=== PATIENT | female | born 1950 | race Caucasian/White ===

== ENCOUNTER 2022-04-01 14:04 | Emergency (ER) | payer MEDICARE ==
[~2022-04-01] VITALS: Ht 167.6 cm; Wt 78.0 kg
== END 2022-04-01 15:31 | disposition home or self-care (01) ==
LOC: ER 14:04
DX: R42 Dizziness and giddiness (principal); F17.210 Nicotine dependence, cigarettes, uncomplicated
CPT/HCPCS: 82947; 93005; 93010

== ENCOUNTER 2023-12-02 19:29 | Inpatient (IN) | payer MEDICARE, OTHER ==
[~2023-12-02] VITALS: Ht 172.7 cm; Wt 72.6 kg
[2023-12-02 20:36] LABS: BASOPHILS ABSOLUTE AUTO 0.04 K/mm3 (0.00-0.23); BASOPHILS PERCENT AUTO 0 % (0-2); EOSINOPHILS ABSOLUTE AUTO 0.03 K/mm3 (0.00-0.68); EOSINOPHILS PERCENT AUTO 0 % (0-6); Hematocrit 30.6 % (33.0-51.0); IMMATURE GRAN ABSOLUTE AUTO 0.03 K/mm3 (0.00-0.10); IMMATURE GRAN PERCENT AUTO 0 % (0-1); LYMPHOCYTES ABSOLUTE AUTO 1.61 K/mm3 (0.84-5.20); LYMPHOCYTES PERCENT AUTO 15 % (21-46); MONOCYTES ABSOLUTE AUTO 1.12 K/mm3 (0.16-1.47); MONOCYTES PERCENT AUTO 10 % (4-13); Mean Corpuscular HGB 31.4 pg (26.0-34.0); Mean Corpuscular HGB Conc 32.7 g/dL (31.5-36.5); Mean Corpuscular Volume 96 fL (80-100); Mean Platelet Volume 12.6 fL (9.1-12.4); NEUTROPHILS ABSOLUTE AUTO 7.97 K/mm3 (1.96-9.15); NEUTROPHILS PERCENT AUTO 74 % (41-73); Platelet Count 164 K/mm3 (150-400); RDW Coefficient Variation 15.6 % (11.7-14.2); Red Blood Cell Count 3.18 M/mm3 (3.80-5.20)
[2023-12-02 20:42] LABS: Source, Urine Straight Cath
[2023-12-02 20:47] LABS: Appearance, Urine Hazy (Clear); Bilirubin, Urine Neg (Neg); Blood, Urine Neg (Neg); Color, Urine Yellow (P-Yellow); Glucose Qualitative, Urine Neg (Neg); Ketones, Urine Neg (Neg); Leukocyte Esterase, Urine 2+ (Neg); Nitrite, Urine Neg (Neg); Protein, Urine 1+ (Neg); Specific Gravity, Urine 1.025 (1.003-1.022); Urobilinogen, Urine 1+ (Normal)
[2023-12-02 20:51] LABS: International Normalized Ratio 1.08; Prothrombin Time Results 11.5 Sec (9.7-11.5)
[2023-12-02 20:57] LABS: Alanine Aminotransfer (ALT/SGP 115 U/L (12-78); Albumin, Blood 3.7 g/dL (3.4-5.0); Albumin/Globulin Ratio 0.9 (0.8-1.8); Alk Phos 90 U/L (50-136); Anion Gap 10 mmol/L (3-11); Aspartate Aminotrans (AST/SGOT 178 U/L (12-37); Bilirubin, Total 0.9 mg/dL (0.1-1.0); Blood Urea Nitrogen 51 mg/dL (8-24); Bun/Creatinine Ratio 37.8 (12.0-20.0); CO2, Blood 27 mmol/L (21-32); Calcium, Blood 9.4 mg/dL (8.5-10.1); Chloride, Blood 106 mmol/L (98-108); Creatinine, Blood 1.35 mg/dL (0.40-1.00); Ethanol (Alcohol), Blood, Med <3 mg/dL; Globulin, Blood 4.2 g/dL (2.2-4.0); Glomerular Filtration Rate 42 (60-); Glucose, Blood 133 mg/dL (70-99); Magnesium, Blood 2.7 mg/dL (1.6-2.4); Potassium, Blood 5.1 mmol/L (3.5-5.5); Sodium, Blood 138 mmol/L (136-145); Total Protein, Blood 7.9 g/dL (6.4-8.2)
[2023-12-02 20:58] LABS: Bacteria Mod /hpf; Mucus Light (0-Heavy); Red Blood Cells, Urine 0-2 /hpf (0-2); Squamous Epithelial Cells Few /hpf (Few)
[2023-12-02 20:59] LABS: U Amphetamine Screen Not Detected; U Barbituate Screen Not Detected; U Benzodiazapine Screen DETECTED; U Buprenorphine Screen DETECTED; U Cannabinoids Screen Not Detected; U Cocaine Screen Not Detected; U Methadone Screen Not Detected; U Methamphetamine Screen Not Detected; U Opiates Screen Not Detected; U Oxycodone Screen Not Detected; U Phencyclidine Screen Not Detected
[2023-12-02] MEDS ORDERED: CefTRIAXone Sodium 1,000 MG in NS 100 ML IV ONE (21:10)
[2023-12-02] MEDS ORDERED: NS 1,000 ML IV ONE (21:10)
[2023-12-02] MEDS ORDERED: Aspirin 325 MG Tab PO ONE (22:15)
[2023-12-02] MEDS ORDERED: Clopidogrel Bisulfate 75 MG Tab PO ONE (22:35)
[2023-12-02] MEDS ORDERED: Clopidogrel Bisulfate 75 MG Tab ONE (22:46)
[2023-12-02] MEDS ORDERED: Atorvastatin 40 MG Tab PO SCH (23:00)
[2023-12-02] MEDS ORDERED: Acetaminophen 325 MG TABLET PO PRN (23:00)
[2023-12-02] MEDS ORDERED: Ondansetron HCl 2 MG / ML 2ML Vial IV PRN (23:05)
[2023-12-03] MEDS ORDERED: NS 500 ML IV SCH (00:05)
[2023-12-03 00:43] VITALS: BP 149/45
[2023-12-03] MEDS ORDERED: Aspirin 300 MG Supp PR SCH (02:00)
[2023-12-03] MEDS ORDERED: Lactated Ringer's 1,000 ML IV SCH (02:00)
--- NOTE | 2023-12-03 04:40 | NUR ---
SHIFT SUMMARY PATIENT IS ALERT BUT NOT ORIENTED. PATIENT HAS HAD NO ACUTE EVENTS THIS SHIFT. PATIENT IS ADMITTED FOR SLURRED SPEECH AND SUSPECTED CVA. PATIENT HAS BEEN SLEEPING MOST OF SHIFT SINCE ADMIT. PATIENT FAILED BEDSIDE SPEECH EVAL IN ER. PATIENT HAS MAINTAINED NPO UNTIL OFFICIAL SPEECH EVAL. PATIENT HAS AN MRI SCHEDULED BUT CANNOT ANSWER QUESTIONS, WILL DIRECT DAY SHIFT TO ASK NEPHEW FOR MRI SCREENING FORM QUESTIONS. IV FLUIDS INFUSING ORDERED. BED IN LOCKED AND LOWEST POSITION. CALL LIGHT IN PLACE. WILL MONITOR UNTIL SHIFT CHANGE.
[2023-12-03 05:51] VITALS: BP 151/50
[2023-12-03 06:05] LABS: BASOPHILS ABSOLUTE AUTO 0.03 K/mm3 (0.00-0.23); BASOPHILS PERCENT AUTO 0 % (0-2); EOSINOPHILS ABSOLUTE AUTO 0.04 K/mm3 (0.00-0.68); EOSINOPHILS PERCENT AUTO 0 % (0-6); Hematocrit 27.1 % (33.0-51.0); IMMATURE GRAN ABSOLUTE AUTO 0.02 K/mm3 (0.00-0.10); IMMATURE GRAN PERCENT AUTO 0 % (0-1); LYMPHOCYTES ABSOLUTE AUTO 2.34 K/mm3 (0.84-5.20); LYMPHOCYTES PERCENT AUTO 25 % (21-46); MONOCYTES ABSOLUTE AUTO 1.11 K/mm3 (0.16-1.47); MONOCYTES PERCENT AUTO 12 % (4-13); Mean Corpuscular HGB Conc 33.2 g/dL (31.5-36.5); Mean Corpuscular Volume 96 fL (80-100); Mean Platelet Volume 12.7 fL (9.1-12.4); NEUTROPHILS ABSOLUTE AUTO 5.92 K/mm3 (1.96-9.15); NEUTROPHILS PERCENT AUTO 63 % (41-73); Platelet Count 129 K/mm3 (150-400); RDW Coefficient Variation 15.7 % (11.7-14.2); RDW Standard Deviation 54.4 fL (35.1-46.3); Red Blood Cell Count 2.81 M/mm3 (3.80-5.20); White Blood Cell Count 9.46 K/mm3 (4.00-11.30)
[2023-12-03 06:29] LABS: Alanine Aminotransfer (ALT/SGP 101 U/L (12-78); Albumin, Blood 3.1 g/dL (3.4-5.0); Albumin/Globulin Ratio 0.9 (0.8-1.8); Alk Phos 74 U/L (50-136); Anion Gap 6 mmol/L (3-11); Aspartate Aminotrans (AST/SGOT 162 U/L (12-37); Bilirubin, Total 0.6 mg/dL (0.1-1.0); Blood Urea Nitrogen 49 mg/dL (8-24); Bun/Creatinine Ratio 38.6 (12.0-20.0); CHOL/HDL RATIO 2.4; CO2, Blood 26 mmol/L (21-32); Calcium, Blood 8.2 mg/dL (8.5-10.1); Chloride, Blood 110 mmol/L (98-108); Cholesterol 87 mg/dL (50-200); Creatinine, Blood 1.27 mg/dL (0.40-1.00); Globulin, Blood 3.6 g/dL (2.2-4.0); Glomerular Filtration Rate 45 (60-); Glucose, Blood 105 mg/dL (70-99); HDL Cholesterol 37 mg/dL (>39); LDL/HDL RATIO 0.9; Low Density Lipoprotein Chol 32 mg/dL (0-110); Magnesium, Blood 2.3 mg/dL (1.6-2.4); Potassium, Blood 5.1 mmol/L (3.5-5.5); Sodium, Blood 137 mmol/L (136-145); Total Protein, Blood 6.7 g/dL (6.4-8.2); Triglycerides 92 mg/dL (30-160); Very Low Density Lipoprot Chol 18 mg/dL (6-32)
[2023-12-03 07:30] VITALS: BP 123/46
[2023-12-03] MEDS ORDERED: Clopidogrel Bisulfate 75 MG Tab PO SCH (09:00)
[2023-12-03] MEDS ORDERED: Atorvastatin 40 MG Tab PO SCH (09:00)
[2023-12-03] MEDS ORDERED: Aspirin 81 MG Chew PO SCH (09:00)
[2023-12-03 14:23] VITALS: BP 119/54
--- NOTE | 2023-12-03 16:33 | NUR ---
SHIFT SUMMARY: PT IS AN A&OX1-3 (SELF, PERSON, PLACE) HER BASELINE COMPREHENSION IS POOR; ALONG WITH HER LANGUAGE AND SPEECH; DYSPHAGIA. SEEN BY SPEECH, OCCUPATIONAL, AND PHYSICAL THERAPY TODAY (SEE THEIR NOTES FOR MORE DETAILS. SHE HAD AN ECHO AND MRI TODAY; RESULTS AVAILABLE. PATIENT PLEASANT AND COOPERATIVE WITH CARE; DOESN'T USE CALL LIGHT, BUT WILL MAKES NEEDS KNOWN, CAN BE IMPULSIVE (BED ALARM ON) SHE IS EATING AND DRINKING (DOES INDEPENDENTLY), SHE IS IN BED, (ALARM ON), CALL LIGHT WITHIN REACH, RESTING-RESP EVEN AND UNLABORED, NO SIGNS OR SYMPTOMS OF DISTRESS, PLAN OF CARE ONGOING.
--- NOTE | 2023-12-03 17:32 | NUR ---
TELE CALLED AT 1658 TO REPORT THAT PATIENT HAS HAD 4 EVENTS OF VENTRICULAR TRIGEM (PVCS) DR. OBRIEN NOTIFIED; NO NEW ORDERS OR ADVISEMENT. NO SIGNS OR SYMPTOMS OF DISTRESS WITH PATIENT.
[2023-12-03 18:26] LABS: Magnesium, Blood 1.9 mg/dL (1.6-2.4); Phosphorus, Blood 2.6 mg/dL (2.5-4.9); Potassium, Blood 4.8 mmol/L (3.5-5.5)
[2023-12-03 20:19] VITALS: BP 150/115
[2023-12-03] MEDS ORDERED: Lactobacil 2-S.Thermo-Bifido 1 1 Cap PO SCH (21:00)
[2023-12-03] MEDS ORDERED: CefTRIAXone Sodium 1,000 MG in NS 100 ML IV SCH (21:00)
--- NOTE | 2023-12-04 03:59 | NUR ---
SHIFT SUMMARY PATIENT IS ALERT AND ORIENTED X2. PATIENT HAS HAD NO ACUTE EVENTS THIS SHIFT. VITAL SIGNS REVIEWED. PATIENTS COMPREHENSION IS CLOSE TO BASELINE PER NOTES AND PATIENT. PATIENTS IV FLUIDS INFUSED ORDERED. PATIENT HAS BEEN IMPULSIVE MULTIPLE TIMES THIS SHIFT. BED ALARM IS ON. PATIENT HAS BEEN PLEASENT AND COOPERATIVE WITH CARE THIS SHIFT. PATIENT HAS HAD NO COMPLAINTS OF PAIN, NAUSEA, SOB OR VOMITTING THIS SHIFT. BED IN LOCKED AND LOWEST POSITION. CALL LIGHT IN PLACE. WILL MONITOR UNTIL SHIFT CHANGE.
[2023-12-04 06:12] VITALS: BP 167/59
[2023-12-04 06:52] LABS: Albumin, Blood 3.2 g/dL (3.4-5.0); Albumin/Globulin Ratio 0.8 (0.8-1.8); Calcium, Blood 8.9 mg/dL (8.5-10.1); Creatinine, Blood 0.78 mg/dL (0.40-1.00); Globulin, Blood 3.8 g/dL (2.2-4.0); Magnesium, Blood 2.1 mg/dL (1.6-2.4); Phosphorus, Blood 2.1 mg/dL (2.5-4.9); Potassium, Blood 4.4 mmol/L (3.5-5.5)
[2023-12-04 07:56] VITALS: BP 131/49
[2023-12-04] MEDS ORDERED: Potassium Phosphate Dibasic 30 MM in Dextrose 5% 500 ML IV STA (07:56)
[2023-12-04] MEDS ORDERED: LOSA50 PO (13:29)
[2023-12-04] MEDS ORDERED: PANT40 PO (13:30)
[2023-12-04] MEDS ORDERED: Feosol45 MG PO (13:31)
[2023-12-04] MEDS ORDERED: ELIQUIS5 M2 PO (13:31)
[2023-12-04] MEDS ORDERED: HYDCHL25 PO (13:32)
[2023-12-04] MEDS ORDERED: LEVSOD75 PO (13:32)
[2023-12-04] MEDS ORDERED: ATOR10 PO (13:32)
[2023-12-04] MEDS ORDERED: SERT100 PO (13:33)
[2023-12-04] MEDS ORDERED: SPIR25 PO (13:33)
[2023-12-04 15:09] VITALS: BP 128/49
--- NOTE | 2023-12-04 17:02 | NUR ---
SHIFT SUMMARY: PT IS A&OX3; NEUROLOGICAL IMPROVEMENT TODAY VERSUS YESTERDAY. MORE ORIENTED AND STABLE ON HER FEET. NO EVENTS ON TELE TODAY, RECEIVED IV POTASSIUM PHOSPHATE, GOT A R UPPER POWERGLIDE PLACED FOR LOST OF PATENTCY OF PERIPHERAL ACCESS AND ABLE TO GET NEW PERIPHERAL ACCESS. PATIENT DID USE HER CALL LIGHT ONCE TODAY TO USE THE RESTROOM, SHE HAS BEEN CONTINENT; NO BMX2 DAYS. SHE IS EATING AND DRINKING. HER FAMILY VISITED TODAY AND EXPRESS IMPROVEMENT IN PATIENT WELL VERSUS WHEN THEY FIRST BROUGHT HER INTO THE HOSPITAL. PATIENT IS IN BED, POST SHOWER; RESTING-RESP EVEN AND UNLABORED, CALL LIGHT WITHIN REACH, BED ALARM ON, AND NO SIGNS OR SYMTPOMS OF DISTRESS, PLAN OF CARE ONGOING.
[2023-12-04 19:19] VITALS: BP 142/58
[2023-12-04] MEDS ORDERED: NS 250 ML IV PRN (20:20)
[2023-12-04] MEDS ORDERED: Apixaban 5 MG Tab PO SCH (21:00)
[2023-12-04] MEDS ORDERED: Losartan Potassium 50 MG Tab PO SCH (21:00)
--- NOTE | 2023-12-05 04:24 | NUR ---
SHIFT SUMMARY PT. IS A&O X4, VERY PLEASANT, SLURRED, DELAYED SPEECH, PT. GETS FRUSTRATED WHEN UNABLE TO EXPRESS HER NEEDS WITH WORDS. PT. ABLE TO SAY "I LOVE YOU, GOOD NIGHT," AND WHEN ASKED CLOSE ENDED QUESTIONS, ABLE TO MAKE HER NEEDS KNOWN. OFFERED NOTEPAD AND A PEN FOR THE PT. TO WRITE HER NEEDS, WHICH PT. REFUSED. PT. DENIES PAIN , SOB, H/A AND DISCOMFORT, AND IS REQUESTING TO GET MORE SLEEP. MEDS ADMINISTERED WHOLE WITH WATER PO, NO ISSUES SWALLOWING DURING THIS SHIFT( BED UPRIGHT SITTING POSITION.) NO ACUTE EVENTS/DISTRESS NOTED/REPORTED DURING THIS SHIFT. BED AT THE LOWEST POSITION, CALL LIGHT IN REACH. WILL HANDOFF TO THE INCOMING SHIFT NURSE.
[2023-12-05] MEDS ORDERED: Pantoprazole Sodium 40 MG Tab PO SCH (06:00)
[2023-12-05] MEDS ORDERED: Levothyroxine Sodium 0.075 MG Tab PO SCH (06:00)
--- NOTE | 2023-12-05 06:45 | NUR ---
THIS AM PT. IS ALERT, FORMING FULL SENTENCES AND REPORTS THAT AFTER YESTERDAY EVENING'S SHOWER, SHE WAS ABLE TO FINALLY GET SOME GOOD SLEEP, THEREFORE PT. REPORTS BEING MORE GROGGY LAST NIGHT. PT. SITTING UP IN THE BED, DIDN'T NEED ANY ASSISTANCE, PT. HELD THE MEDCUP AND WAS ABLE TO GRAB THE WATERCUP AND DRINK WATER W/O ASSISTANCE WELL.
[2023-12-05 07:26] VITALS: BP 151/47
[2023-12-05] MEDS ORDERED: HydroCHLOROthiazide 25 mg Tab PO SCH (09:00)
[2023-12-05] MEDS ORDERED: Misc. Tablet PO SCH (09:00)
[2023-12-05] MEDS ORDERED: Spironolactone 25 MG Tab PO SCH (09:00)
[2023-12-05] MEDS ORDERED: Sertraline HCl 100 MG Tab PO SCH (09:00)
[2023-12-05 14:47] VITALS: BP 119/41
--- NOTE | 2023-12-05 15:12 | NUR ---
SHIFT SUMMARY: PATIENT A/OX3, SLURRED/PRESSURED AND DELAYED IN SPEECH, PLEASANT AND COOPERATIVE c CARE. PATIENT HAS HAD NO ACUTE EVENTS THIS SHIFT. PATIENT DENIES CP/PRESSURE, SOB, N/V AND DIZZINESS. PATIENT STILL ON TELE, SR HR IN THE LOW 60'S BPM. PATIENT CONTINENCE OF BLADDER, USES [facility] c 1 ASSIST FWW/GAIT BELT. PATIENT UP IN THE CHAIR FOR AN HOUR AND REQUESTED BACK IN BED. PATIENT HAS BEEN SLEEPING c INTERRUPTION UP TO BSC ON/OFF T/O SHIFT. VITAL SIGNS REVIEWED. PATIENT HAS BEEN USING CALL LIGHT APPROPRIATELY T/O SHIFT. BED ALARM ON FOR SAFETY. CALL LIGHT IN REACH.
[2023-12-05 19:32] VITALS: BP 146/52
[2023-12-05] MEDS ORDERED: Melatonin 5 MG Tablet PO PRN (21:20)
--- NOTE | 2023-12-06 04:40 | NUR ---
SHIFT SUMMARY PT. IS A&O X4, ABLE TO SPEAK SENTENCES, AND USE THE BEDSIDE COMMODE WITH STANDBY ASSIST. PT. ABLE TO PRESS THE CALL LIGHT TO REQUEST STAFF FOR ASSISTANCE. TELLY SINUS@63, PT. DENIES PAIN, H/A,AND SOB. LE ELEVATED WITH PILLOWS. AT HS, PT C/O "NOT ABLE TO SLEEP," NEW ORDER REVEIVED FROM BIBLE READER.JOSE ANTONIO:"MELATONIN 5MG PO QHS PRN," ADMINISTERED ORDERED. AT 0130 PT. AWAKE USING BEDSIDE COMMODE /STAFF ASSIST. NOTED PT.COUGHS INTERMITTENTLY, MOIST, NON-PRODUCTIVE. LS CLEAR TO AUSCULTATION. NO ACUTE EVENTS/DISTRESS NOTED/REPORTED DURING THIS SHIFT. BED AT THE LOWEST POSITION, CALL LIGHT IN REACH, BED ALARM FOR SAFETY. [id number]/REPOSITIONING DURING THIS SHIFT. WILL HANDOFF TO THE INCOMING SHIFT NURSE.
[2023-12-06 05:51] VITALS: BP 149/48
[2023-12-06 07:18] VITALS: BP 135/41
[2023-12-06 08:32] LABS: Albumin, Blood 2.5 g/dL (3.4-5.0); Albumin/Globulin Ratio 0.7 (0.8-1.8); Bilirubin, Total 0.9 mg/dL (0.1-1.0); Bun/Creatinine Ratio 23.6 (12.0-20.0); Calcium, Blood 8.2 mg/dL (8.5-10.1); Creatinine, Blood 0.76 mg/dL (0.40-1.00); Globulin, Blood 3.6 g/dL (2.2-4.0); Magnesium, Blood 1.8 mg/dL (1.6-2.4); Phosphorus, Blood 3.1 mg/dL (2.5-4.9); Potassium, Blood 4.1 mmol/L (3.5-5.5); Total Protein, Blood 6.1 g/dL (6.4-8.2)
--- NOTE | 2023-12-06 12:20 | NUR ---
DISCHARGE PT DISCHARGED BACK TO FAMILY WITH HOME HEALTH TODAY. PG REMOVED & INTACT. NE MEDICATIONS WENT OVER WITH PT FAMILY AND OTHER FOLLOW UP INSTURCTIONS. FAMILY EDUCATED ON STROKE SYMPTOMS AND WHAT TO LOOK FOR IN THE FUTURE. NO FURTHER QUESTIONS AT TIME OF DC. PT WHEELED OUT BY AIDE & DRIVEN HOME BY CARLOS.
== END 2023-12-06 12:13 | disposition home health service (06) | DRG 92 ==
LOC: ER 19:29 → MEDS 19:30
PROVIDERS: Emergency Medicine; Internal Medicine; ADMIT Student in an Organized Health Care Education/Training Program
DX: R47.81 Slurred speech (principal); N17.9 Acute kidney failure, unspecified; I65.02 Occlusion and stenosis of left vertebral artery; N18.2 Chronic kidney disease, stage 2 (mild); E03.9 Hypothyroidism, unspecified; L89.620 Pressure ulcer of left heel, unstageable; L89.610 Pressure ulcer of right heel, unstageable; K76.0 Fatty (change of) liver, not elsewhere classified; E78.00 Pure hypercholesterolemia, unspecified; E86.0 Dehydration; I12.9 Hypertensive chronic kidney disease with stage 1 through stage 4 chronic kidney disease, or unspecified chronic kidney disease; D63.1 Anemia in chronic kidney disease; E83.39 Other disorders of phosphorus metabolism; I48.0 Paroxysmal atrial fibrillation; F41.1 Generalized anxiety disorder; F32.A Depression, unspecified; K21.9 Gastro-esophageal reflux disease without esophagitis; F17.210 Nicotine dependence, cigarettes, uncomplicated
CPT/HCPCS: 36415; 51701; 70450; 70496; 70498; 70551; 80053; 80061; 81001; 82570; 82947; 83036; 83735; 84100; 84132; 84300; 84443; 85025; 85610; 87086; 92610; 93005; 93010; 93306; 96365-59; 96366-59; 97116; 97162; 97166; 97530; 97535; 99285-25; A9270; G0378; J0696; J7040; J7060; J7120; Q9967

== ENCOUNTER 2024-02-26 17:21 | Inpatient (IN) | payer MEDICARE, OTHER ==
[~2024-02-26] VITALS: Ht 177.8 cm; Wt 71.6 kg
[~2024-02-26 17:21] MED LIST: ATOR10 PO; ELIQUIS5 M2 PO; FERSU300 PO; Feosol45 MG PO; HYDCHL25 PO; LATA.005SO BOTHEYES; LEVSOD75 PO; LOSARTAN POTAS100 M1 PO; MELATONIN5 M1 PO; Melatonin 5 MG Tablet PO PRN; PANT40 PO; SERT100 PO; SPIR25 PO
[2024-02-26 21:37] LABS: BASOPHILS ABSOLUTE AUTO 0.02 K/mm3 (0.00-0.23); BASOPHILS PERCENT AUTO 0 % (0-2); EOSINOPHILS ABSOLUTE AUTO 0.11 K/mm3 (0.00-0.68); EOSINOPHILS PERCENT AUTO 2 % (0-6); Hematocrit 26.2 % (33.0-51.0); Hemoglobin 8.5 g/dL (11.5-16.0); IMMATURE GRAN ABSOLUTE AUTO 0.02 K/mm3 (0.00-0.10); IMMATURE GRAN PERCENT AUTO 0 % (0-1); LYMPHOCYTES ABSOLUTE AUTO 1.54 K/mm3 (0.84-5.20); LYMPHOCYTES PERCENT AUTO 25 % (21-46); MONOCYTES ABSOLUTE AUTO 0.63 K/mm3 (0.16-1.47); MONOCYTES PERCENT AUTO 10 % (4-13); Mean Corpuscular HGB 30.5 pg (26.0-34.0); Mean Corpuscular HGB Conc 32.4 g/dL (31.5-36.5); Mean Corpuscular Volume 94 fL (80-100); Mean Platelet Volume 12.6 fL (9.1-12.4); NEUTROPHILS ABSOLUTE AUTO 3.87 K/mm3 (1.96-9.15); NEUTROPHILS PERCENT AUTO 63 % (41-73); Platelet Count 154 K/mm3 (150-400); RDW Coefficient Variation 18.4 % (11.7-14.2); RDW Standard Deviation 63.5 fL (35.1-46.3); Red Blood Cell Count 2.79 M/mm3 (3.80-5.20); White Blood Cell Count 6.19 K/mm3 (4.00-11.30)
[2024-02-26 22:10] LABS: Albumin, Blood 3.1 g/dL (3.4-5.0); Albumin/Globulin Ratio 0.9 (0.8-1.8); Bilirubin, Total 0.6 mg/dL (0.1-1.0); Bun/Creatinine Ratio 30.6 (12.0-20.0); Calcium, Blood 8.6 mg/dL (8.5-10.1); Creatinine, Blood 1.11 mg/dL (0.40-1.00); Globulin, Blood 3.5 g/dL (2.2-4.0); Potassium, Blood 4.8 mmol/L (3.5-5.5); Total Protein, Blood 6.6 g/dL (6.4-8.2)
[2024-02-27] VITALS (10 sets, daily range): BP systolic 144–160; BP diastolic 43–53
[2024-02-27] MEDS ORDERED: Ondansetron HCl 2 MG / ML 2ML Vial IV PRN (00:05)
[2024-02-27] MEDS ORDERED: Acetaminophen 325 MG TABLET PO PRN (00:05)
[2024-02-27] MEDS ORDERED: Nitroglycerin 0.4 MG SUBL SL PRN (00:05)
[2024-02-27 03:19] LABS: BASOPHILS ABSOLUTE AUTO 0.03 K/mm3 (0.00-0.23); BASOPHILS PERCENT AUTO 1 % (0-2); EOSINOPHILS ABSOLUTE AUTO 0.13 K/mm3 (0.00-0.68); EOSINOPHILS PERCENT AUTO 3 % (0-6); Hematocrit 21.4 % (33.0-51.0); Hemoglobin 7.1 g/dL (11.5-16.0); IMMATURE GRAN ABSOLUTE AUTO 0.01 K/mm3 (0.00-0.10); IMMATURE GRAN PERCENT AUTO 0 % (0-1); LYMPHOCYTES ABSOLUTE AUTO 1.59 K/mm3 (0.84-5.20); LYMPHOCYTES PERCENT AUTO 31 % (21-46); MONOCYTES ABSOLUTE AUTO 0.61 K/mm3 (0.16-1.47); MONOCYTES PERCENT AUTO 12 % (4-13); Mean Corpuscular HGB 30.3 pg (26.0-34.0); Mean Corpuscular HGB Conc 33.2 g/dL (31.5-36.5); Mean Corpuscular Volume 92 fL (80-100); NEUTROPHILS ABSOLUTE AUTO 2.73 K/mm3 (1.96-9.15); NEUTROPHILS PERCENT AUTO 54 % (41-73); Platelet Count 123 K/mm3 (150-400); RDW Coefficient Variation 18.3 % (11.7-14.2); Red Blood Cell Count 2.34 M/mm3 (3.80-5.20)
[2024-02-27 03:54] LABS: Albumin, Blood 2.8 g/dL (3.4-5.0); Albumin/Globulin Ratio 0.9 (0.8-1.8); Bilirubin, Total 0.5 mg/dL (0.1-1.0); Calcium, Blood 8.4 mg/dL (8.5-10.1); Globulin, Blood 3.2 g/dL (2.2-4.0); Potassium, Blood 4.3 mmol/L (3.5-5.5)
[2024-02-27] MEDS ORDERED: Pantoprazole Sodium 40 MG Tab PO SCH (06:00)
--- NOTE | 2024-02-27 07:55 | NUR ---
SHIFT SUMMARY: VALENTINE IS A&OX4. VSS, NO ACUTE EVENTS SINCE ADMISSION TO THE FLOOR THIS SHIFT. SHE IS A ONE-PERSON STANDBY ASSIST AND IS TOLERATING CLEAR LIQUIDS WELL. SHE DOES HAVE EXPRESSIVE APHASIA AND HAS DIFFICULTIES ANSWERING QUESTIONS CLEARLY AT TIMES. SHE STATES SHE LIVES WITH HER NIECE WHO ASSISTS HER TO MAKE/UNDERSTAND/COMMUNICATE HER HEALTHCARE DECISIONS. IV TO LEFT UPPER ARM PATENT. PT DENIED ANY BLOODY STOOL FOR THE LAST TWO DAYS, BUT UNSURE WHEN SHE HAD THE LAST BOUT OF BLOODY STOOL. PT STATES THAT SHE HAS BEEN HAVING DARK STOOLS. REQUESTED PT TO ALLOW STAFF TO VIEW HER NEXT BOWEL MOVEMENT. SHE IS LYING IN BED WITH THE CALL LIGHT IN REACH. REPORT WAS GIVEN TO DAY SHIFT RN.
[2024-02-27] MEDS ORDERED: Spironolactone 25 MG Tab PO SCH (09:00)
[2024-02-27] MEDS ORDERED: Apixaban 5 MG Tab PO SCH ×2 (09:00→21:00)
[2024-02-27] MEDS ORDERED: Losartan Potassium 50 MG Tab PO SCH (09:00)
[2024-02-27] MEDS ORDERED: Sertraline HCl 100 MG Tab PO SCH (09:00)
[2024-02-27] MEDS ORDERED: Aspirin 81 MG Chew PO SCH (09:00)
[2024-02-27] MEDS ORDERED: Atorvastatin 10 MG Tab PO SCH (09:00)
[2024-02-27 10:33] LABS: Hematocrit 20.2 % (33.0-51.0); Hemoglobin 6.7 g/dL (11.5-16.0)
--- NOTE | 2024-02-27 11:30 | NUR ---
CONTACTED DR BUCIO REGARDING H&H RESULTED AT 1020. STATED SHE WOULD PLACE ORDERS TO TRANSFUSE. CONSENT SIGNED IN CHART AND TYPE AND SCREEN RESULTED.
--- NOTE | 2024-02-27 12:00 | NUR ---
assumed care of pt, will start a blood transfusion, pt has word salad but is a/ox4, pleasant and cooperative with care, very difficult to understand. call light in reach.
[2024-02-27] MEDS ORDERED: NS 500 ML IV SCH (13:10)
--- NOTE | 2024-02-27 18:35 | NUR ---
pt visiting with family, answered questions from her niece, no acute changes this shift, she recieved one unit of prbc's, tolerated well. call light in reach.
[2024-02-27] MEDS ORDERED: DiphenhydrAMINE HCL 25 MG Cap PO PRN (21:25)
[2024-02-27 22:34] LABS: BASOPHILS ABSOLUTE AUTO 0.02 K/mm3 (0.00-0.23); BASOPHILS PERCENT AUTO 0 % (0-2); EOSINOPHILS ABSOLUTE AUTO 0.09 K/mm3 (0.00-0.68); EOSINOPHILS PERCENT AUTO 2 % (0-6); Hematocrit 23.3 % (33.0-51.0); Hemoglobin 7.8 g/dL (11.5-16.0); IMMATURE GRAN ABSOLUTE AUTO 0.01 K/mm3 (0.00-0.10); IMMATURE GRAN PERCENT AUTO 0 % (0-1); LYMPHOCYTES ABSOLUTE AUTO 1.49 K/mm3 (0.84-5.20); LYMPHOCYTES PERCENT AUTO 25 % (21-46); MONOCYTES ABSOLUTE AUTO 0.69 K/mm3 (0.16-1.47); MONOCYTES PERCENT AUTO 12 % (4-13); Mean Corpuscular HGB Conc 33.5 g/dL (31.5-36.5); Mean Corpuscular Volume 90 fL (80-100); Mean Platelet Volume 12.1 fL (9.1-12.4); NEUTROPHILS ABSOLUTE AUTO 3.67 K/mm3 (1.96-9.15); NEUTROPHILS PERCENT AUTO 61 % (41-73); Platelet Count 136 K/mm3 (150-400); RDW Coefficient Variation 18.3 % (11.7-14.2); RDW Standard Deviation 58.6 fL (35.1-46.3); White Blood Cell Count 5.97 K/mm3 (4.00-11.30)
[2024-02-28 05:16] VITALS: BP 168/51
[2024-02-28 05:18] LABS: BASOPHILS ABSOLUTE AUTO 0.03 K/mm3 (0.00-0.23); BASOPHILS PERCENT AUTO 1 % (0-2); EOSINOPHILS ABSOLUTE AUTO 0.16 K/mm3 (0.00-0.68); EOSINOPHILS PERCENT AUTO 3 % (0-6); Hematocrit 24.9 % (33.0-51.0); Hemoglobin 8.2 g/dL (11.5-16.0); IMMATURE GRAN ABSOLUTE AUTO 0.02 K/mm3 (0.00-0.10); IMMATURE GRAN PERCENT AUTO 0 % (0-1); LYMPHOCYTES ABSOLUTE AUTO 1.57 K/mm3 (0.84-5.20); LYMPHOCYTES PERCENT AUTO 29 % (21-46); MONOCYTES PERCENT AUTO 13 % (4-13); Mean Corpuscular HGB 29.8 pg (26.0-34.0); Mean Corpuscular HGB Conc 32.9 g/dL (31.5-36.5); Mean Corpuscular Volume 91 fL (80-100); Mean Platelet Volume 11.7 fL (9.1-12.4); NEUTROPHILS ABSOLUTE AUTO 3.01 K/mm3 (1.96-9.15); NEUTROPHILS PERCENT AUTO 55 % (41-73); Platelet Count 136 K/mm3 (150-400); RDW Coefficient Variation 18.4 % (11.7-14.2); RDW Standard Deviation 60.3 fL (35.1-46.3); Red Blood Cell Count 2.75 M/mm3 (3.80-5.20); White Blood Cell Count 5.49 K/mm3 (4.00-11.30)
--- NOTE | 2024-02-28 05:45 | NUR ---
SHIFT SUMMARY: VALENTINE IS A&O, DIFFICULT TO ASSESS D/T EXPRESSIVE APHASIA. VSS, BP MILDLY ABOVE TREND. PT'S HEMOGLOBIN IS TRENDING UP. POWERGLIDE TO RIGHT UPPER ARM PATENT. SHE IS INDEPENDENT IN THE ROOM, TOLERATING PO INTAKE WELL, AND ABLE TO MAKE HER NEEDS KNOWN. PT DENIES ANY SIGNS OF BLEEDING INCLUDING BLOODY STOOL. SHE IS LYING IN BED WITH THE CALL LIGHT IN REACH. WILL GIVE REPORT TO DAY SHIFT RN.
[2024-02-28 06:00] LABS: Albumin, Blood 2.7 g/dL (3.4-5.0); Albumin/Globulin Ratio 0.8 (0.8-1.8); Bilirubin, Total 2.2 mg/dL (0.1-1.0); Calcium, Blood 8.7 mg/dL (8.5-10.1); Creatinine, Blood 0.95 mg/dL (0.40-1.00); Globulin, Blood 3.2 g/dL (2.2-4.0); Potassium, Blood 4.1 mmol/L (3.5-5.5); Total Protein, Blood 5.9 g/dL (6.4-8.2)
[2024-02-28] MEDS ORDERED: Levothyroxine Sodium 0.075 MG Tab PO SCH (06:00)
[2024-02-28 07:22] VITALS: BP 164/65
[2024-02-28] MEDS ORDERED: HydroCHLOROthiazide 25 mg Tab PO SCH (09:00)
[2024-02-28] MEDS ORDERED: Ferrous Sulfate 325 MG Tab PO SCH (09:00)
[2024-02-28 14:53] LABS: Percent Saturation 90.1 % (15.0-50.0)
[2024-02-28 16:01] VITALS: BP 144/46
--- NOTE | 2024-02-28 17:41 | NUR ---
PT A&O X4, ABLE TO MAKE DESIRES KNOWN. SOMETIMES RN UTILIZES YES/NO QUESTIONS TO UNDERSTAND DESIRES. INDEPENDANT IN ROOM, AMBULATES TO BATHROOM WELL, HAD BM TODAY WITH NO BLACK, TARRY APPEARANCE. HAND FIRST PART OF STRESS TEST TODAY, NOW ON NUCLEAR MEDICATION UNTIL 03/01. SECOND PART OF STRESS TEST SHOULD BE PERFORMED TOMORROW. CALL LIGHT WITHIN REACH.
[2024-02-28 20:36] VITALS: BP 168/52
[2024-02-28] MEDS ORDERED: Latanoprost 0.005% Opth Soln 2.5 ML BOTHEYES SCH (21:00)
[2024-02-29 02:39] VITALS: BP 175/51
[2024-02-29] MEDS ORDERED: HydrALAZINE HCl 20 MG / ML 1ML Vial IV ONE (04:45)
[2024-02-29 04:49] VITALS: BP 175/69
[2024-02-29 06:13] LABS: Albumin, Blood 2.6 g/dL (3.4-5.0); Albumin/Globulin Ratio 0.9 (0.8-1.8); Bilirubin, Total 0.7 mg/dL (0.1-1.0); Bun/Creatinine Ratio 18.7 (12.0-20.0); Calcium, Blood 8.3 mg/dL (8.5-10.1); Creatinine, Blood 0.86 mg/dL (0.40-1.00); Potassium, Blood 4.2 mmol/L (3.5-5.5); Total Protein, Blood 5.6 g/dL (6.4-8.2)
--- NOTE | 2024-02-29 06:54 | NUR ---
SHIFT SUMMARY: VALENTINE IS A&OX4, EXPRESSIVE APHASIA IS PRONOUNCED, BUT PT IS ABLE TO ANSWER YES/NO QUESTIONS EFFECTIVELY. VSS, SHE WAS MADE NPO AT 0330 IN ANTICIPATION OF STRESS TEST, NO CAFFEINE GIVEN THIS SHIFT. SHE IS INDEPENENT IN THE ROOM, POWERGLIDE TO GABRIEL PATENT, AND SHE IS CONTINENT OF BLADDER AND BOWEL. SHE WAS TOLERATING PO INTAKE WELL PRIOR TO BEING MADE NPO. 0600 MEDICATIONS WERE GIVEN. SHE IS LYING IN BED WITH THE CALL LIGHT IN REACH, BED IN LOWEST POSITION. WILL GIVE REPORT TO DAY SHIFT RN.
[2024-02-29 08:34] VITALS: BP 142/56
[2024-02-29] MEDS ORDERED: Caffeine Citrated 60 MG/3 ML Vial ONE (10:37)
[2024-02-29] MEDS ORDERED: Regadenoson 0.4 MG/5 ML SYRINGE ONE (10:37)
[2024-02-29 14:36] VITALS: BP 142/56
--- NOTE | 2024-02-29 17:23 | NUR ---
SHIFT SUMMARY PT A&OX4, ABLE TO LET NEEDS BE KNOWN (UTILIZE YES/NO QUESTIONS). CONTINENT, AMBULATED TO THE BATHROOM FOR ENTIRE SHIFT. HAD STRESS TODAY, WAS NOTIFIED OF RESULTS. NPO AFTER MIDNIGHT. CALL LIGHT IN REACH.
[2024-02-29] MEDS ORDERED: Nitroglycerin 0.4 MG SUBL SL PRN (18:15)
[2024-02-29 20:02] VITALS: BP 145/66
[2024-03-01 03:38] VITALS: BP 165/58
--- NOTE | 2024-03-01 04:02 | NUR ---
sffect pleasant. pt cooperative. rested quietly. no distress noted. oog ambulating in room at this time. [id number] C/O NO DISTRERSS NOTED.
[2024-03-01 06:01] LABS: BASOPHILS ABSOLUTE AUTO 0.02 K/mm3 (0.00-0.23); BASOPHILS PERCENT AUTO 0 % (0-2); EOSINOPHILS ABSOLUTE AUTO 0.22 K/mm3 (0.00-0.68); EOSINOPHILS PERCENT AUTO 4 % (0-6); Hematocrit 23.7 % (33.0-51.0); Hemoglobin 7.8 g/dL (11.5-16.0); IMMATURE GRAN ABSOLUTE AUTO 0.02 K/mm3 (0.00-0.10); IMMATURE GRAN PERCENT AUTO 0 % (0-1); LYMPHOCYTES ABSOLUTE AUTO 1.19 K/mm3 (0.84-5.20); LYMPHOCYTES PERCENT AUTO 21 % (21-46); MONOCYTES ABSOLUTE AUTO 0.86 K/mm3 (0.16-1.47); MONOCYTES PERCENT AUTO 15 % (4-13); Mean Corpuscular HGB 29.7 pg (26.0-34.0); Mean Corpuscular HGB Conc 32.9 g/dL (31.5-36.5); Mean Corpuscular Volume 90 fL (80-100); Mean Platelet Volume 11.5 fL (9.1-12.4); NEUTROPHILS ABSOLUTE AUTO 3.34 K/mm3 (1.96-9.15); NEUTROPHILS PERCENT AUTO 59 % (41-73); Platelet Count 128 K/mm3 (150-400); RDW Coefficient Variation 17.6 % (11.7-14.2); RDW Standard Deviation 57.8 fL (35.1-46.3); Red Blood Cell Count 2.63 M/mm3 (3.80-5.20); White Blood Cell Count 5.65 K/mm3 (4.00-11.30)
[2024-03-01 08:30] VITALS: BP 135/59
[2024-03-01] MEDS ORDERED: AmLODIPine Besylate 5 MG Tab PO SCH (09:00)
[2024-03-01] MEDS ORDERED: AMLO10 PO (12:25)
[2024-03-01] MEDS ORDERED: NITR.4SL SL (12:26)
--- NOTE | 2024-03-01 14:31 | NUR ---
1430 PATIENT DISCAHRGED HOME, DISCHARGE INSTRUCTIONS, FOLLOW UP NEEDS, AND MEDICATIONS GIVEN TO PATIENT, SON, AND GRANDSON. ALL DENEID FURTHER QUESTIONS, PLEASANT TO CARE
== END 2024-03-01 14:08 | disposition home or self-care (01) | DRG 311 ==
LOC: ER 17:21 → MEDS 17:30
PROVIDERS: Hospitalist; Internal Medicine; Student in an Organized Health Care Education/Training Program; ADMIT Student in an Organized Health Care Education/Training Program
PROC: 30233N1 Transfusion of Nonautologous Red Blood Cells into Peripheral Vein, Percutaneous Approach (ICD-10-PCS; principal; 2024-02-27)
DX: I20.9 Angina pectoris, unspecified (principal); I13.0 Hypertensive heart and chronic kidney disease with heart failure and stage 1 through stage 4 chronic kidney disease, or unspecified chronic kidney disease; I50.32 Chronic diastolic (congestive) heart failure; K74.60 Unspecified cirrhosis of liver; G89.29 Other chronic pain; I69.320 Aphasia following cerebral infarction; E03.9 Hypothyroidism, unspecified; E78.5 Hyperlipidemia, unspecified; I48.0 Paroxysmal atrial fibrillation; H40.9 Unspecified glaucoma; F17.210 Nicotine dependence, cigarettes, uncomplicated; D50.9 Iron deficiency anemia, unspecified; N18.31 Chronic kidney disease, stage 3a; Z91.040 Latex allergy status; Z88.8 Allergy status to other drugs, medicaments and biological substances; Z79.899 Other long term (current) drug therapy; Z79.01 Long term (current) use of anticoagulants; Z79.890 Hormone replacement therapy
CPT/HCPCS: 36415; 36430; 71045; 76705; 78452; 80053; 82728; 83540; 83550; 83690; 83735; 83880; 84484; 85014; 85018; 85025; 86850; 86900; 86901; 86923; 93005; 93010; 93017; 93971; 99285-25; A9270; A9500; C1751; G0378; J0360; J0706; J2785; J7040; P9016

== ENCOUNTER 2024-04-03 11:49 | Inpatient (IN) | payer MEDICARE, OTHER ==
[~2024-04-03] VITALS: Ht 154.9 cm; Wt 71.6 kg
[~2024-04-03 11:49] MED LIST changes: +AMLO10 PO; -HYDCHL25 PO; +HYDROCHLOROTH12.5 MG PO; +MELATONIN10 M1 PO; -MELATONIN5 M1 PO; -Melatonin 5 MG Tablet PO PRN; +NITR.4SL SL
[2024-04-03 14:49] LABS: BASOPHILS ABSOLUTE AUTO 0.02 K/mm3 (0.00-0.23); BASOPHILS PERCENT AUTO 0 % (0-2); EOSINOPHILS ABSOLUTE AUTO 0.05 K/mm3 (0.00-0.68); EOSINOPHILS PERCENT AUTO 1 % (0-6); Hematocrit 18.6 % (33.0-51.0); IMMATURE GRAN ABSOLUTE AUTO 0.03 K/mm3 (0.00-0.10); IMMATURE GRAN PERCENT AUTO 1 % (0-1); LYMPHOCYTES ABSOLUTE AUTO 1.24 K/mm3 (0.84-5.20); LYMPHOCYTES PERCENT AUTO 24 % (21-46); MONOCYTES ABSOLUTE AUTO 0.68 K/mm3 (0.16-1.47); MONOCYTES PERCENT AUTO 13 % (4-13); Mean Corpuscular HGB 32.1 pg (26.0-34.0); Mean Corpuscular HGB Conc 32.3 g/dL (31.5-36.5); Mean Corpuscular Volume 100 fL (80-100); Mean Platelet Volume 11.5 fL (9.1-12.4); NEUTROPHILS ABSOLUTE AUTO 3.24 K/mm3 (1.96-9.15); NEUTROPHILS PERCENT AUTO 62 % (41-73); Platelet Count 155 K/mm3 (150-400); RDW Coefficient Variation 19.9 % (11.7-14.2); RDW Standard Deviation 70.7 fL (35.1-46.3); Red Blood Cell Count 1.87 M/mm3 (3.80-5.20); White Blood Cell Count 5.26 K/mm3 (4.00-11.30)
[2024-04-03 15:07] LABS: Albumin, Blood 2.6 g/dL (3.4-5.0); Albumin/Globulin Ratio 0.9 (0.8-1.8); Bilirubin, Total 0.6 mg/dL (0.1-1.0); Bun/Creatinine Ratio 35.8 (12.0-20.0); Creatinine, Blood 1.37 mg/dL (0.40-1.00); Potassium, Blood 4.2 mmol/L (3.5-5.5); Total Protein, Blood 5.6 g/dL (6.4-8.2)
[2024-04-03] MEDS ORDERED: NS 1,000 ML IV SCH (15:15)
[2024-04-03] MEDS ORDERED: NS 1,000 ML IV ONE (16:26)
[2024-04-03] MEDS ORDERED: FLU VACC TS2024-25(6MOS UP)/PF 45 MCG/0.5 ML SYRINGE IM SCH (16:50)
[2024-04-03] MEDS ORDERED: Pantoprazole Sodium 40 MG Injection IV SCH (17:00)
[2024-04-03 17:01] LABS: Source, Urine Clean Catch
[2024-04-03 17:03] LABS: Appearance, Urine Clear (Clear); Bilirubin, Urine Neg (Neg); Blood, Urine 1+ (Neg); Color, Urine Yellow (P-Yellow); Glucose Qualitative, Urine Neg (Neg); Ketones, Urine Neg (Neg); Leukocyte Esterase, Urine 1+ (Neg); Nitrite, Urine Neg (Neg); Protein, Urine Neg (Neg); Urobilinogen, Urine NORM (Normal)
[2024-04-03 17:10] LABS: Bacteria Few /hpf; Red Blood Cells, Urine 0-2 /hpf (0-2); Squamous Epithelial Cells Few /hpf (Few); Transitional Epithelial Cells Rare /hpf (0-Rare)
[2024-04-03] MEDS ORDERED: ATOR80 PO (17:22)
[2024-04-03] MEDS ORDERED: LOSARTAN POTAS100 M1 PO (17:24)
[2024-04-03 18:47] VITALS: BP 116/51
--- NOTE | 2024-04-03 19:16 | NUR ---
PT TO ROOM 183 LUNGS CLEAR WITH EXP WHEEZES T/O. H/R REG, CELIA, NO MURMUR NOTED. TELE ON ORDER . PT REPORTS 2 DAYS BLACK STOOL. HAT PLACED IN TOILET TO OBSERVE. BLOOD JUST FINISHED AT 185. MARKED ON ER BLOOD SHEET. DR KHALIL IN TO SEE PT. SPOKE TO ME AT 1920 STATES OKAY FULL LIQUID TONITE UNTIL 0300 TUES AM. AT 0300 TUES AM, WATER ONLY. NPO NOON WEDNESDAY. DR SMITH WILL MAKE ORDERS
--- NOTE | 2024-04-03 19:51 | NUR ---
PT TO ROOM 1835, BLOOD NEARLY DONE RUNNING. STOPPED AT 1850. PAPER CHARTED DONE. PENDING ONE MORE UNIT. CALLED DR KHALIL TO MAKE SURE GOT CONSULT. HE DID NOT ANS. CALLED DR DIALLO, HE STATES SPOKE TO DR KHALIL AND SAYS WILL COME SEE TONTC. DR KHALIL DID INDEED COME IN. FULL LIQUID THRU 3AM. H2O ONLY AT 3AM UNTIL NOON. NPO AT NOON WEDNESDAY. HE TO PLACE ORDERS. TELE PLACED, CELIA AT 50'S. PT HAS ZIOPATCH IN PLACE. BED IN LOW POSITION, CALL LITE IN [facility], CALLS APPROP
[2024-04-03] MEDS ORDERED: NS 250 ML IV PRN (20:15)
[2024-04-03 21:42] VITALS: BP 115/43
[2024-04-03 22:13] VITALS: BP 119/42
[2024-04-03 23:10] VITALS: BP 121/40
[2024-04-04] VITALS (19 sets, daily range): BP systolic 102–158; BP diastolic 37–73
[2024-04-04 04:24] LABS: BASOPHILS ABSOLUTE AUTO 0.02 K/mm3 (0.00-0.23); BASOPHILS PERCENT AUTO 0 % (0-2); EOSINOPHILS ABSOLUTE AUTO 0.15 K/mm3 (0.00-0.68); EOSINOPHILS PERCENT AUTO 3 % (0-6); Hematocrit 24.1 % (33.0-51.0); Hemoglobin 8.2 g/dL (11.5-16.0); IMMATURE GRAN ABSOLUTE AUTO 0.01 K/mm3 (0.00-0.10); IMMATURE GRAN PERCENT AUTO 0 % (0-1); LYMPHOCYTES ABSOLUTE AUTO 1.88 K/mm3 (0.84-5.20); LYMPHOCYTES PERCENT AUTO 33 % (21-46); MONOCYTES ABSOLUTE AUTO 0.75 K/mm3 (0.16-1.47); MONOCYTES PERCENT AUTO 13 % (4-13); Mean Corpuscular HGB 31.9 pg (26.0-34.0); NEUTROPHILS ABSOLUTE AUTO 2.91 K/mm3 (1.96-9.15); NEUTROPHILS PERCENT AUTO 51 % (41-73); Platelet Count 144 K/mm3 (150-400); RDW Coefficient Variation 18.7 % (11.7-14.2); RDW Standard Deviation 60.4 fL (35.1-46.3); Red Blood Cell Count 2.57 M/mm3 (3.80-5.20); White Blood Cell Count 5.72 K/mm3 (4.00-11.30)
[2024-04-04 04:29] LABS: Mean Corpuscular Volume 94 fL (80-100)
[2024-04-04 04:44] LABS: Bun/Creatinine Ratio 34.3 (12.0-20.0); Creatinine, Blood 1.08 mg/dL (0.40-1.00); Potassium, Blood 4.1 mmol/L (3.5-5.5)
--- NOTE | 2024-04-04 04:52 | NUR ---
PT REC'D FROM ED AT SHIFT CHANGE. ADMITTED WITH GI BLEED, PT HAS HX OF GI BLEEDS. AAOX4. HX OF CVA, ESPRESSIVE APHASISA, PT CAN FIND WORDS WITH TIME. RESIDUAL R SIDE WEAKNESS. SBA WITH AMBULATION D/T BLEEDING RISK. PT HAS A STEADY GAIT. TELE IN PLACE, BRADYCARDIA AND SYEDA PATCH. RA. CONT OF URINE AND BOWELS. 2 UNITS PBS REC'D ON 04/03/22 WITHOUT COMPLICATIONS. PT IS PLEASANT AND RINGS APPRIATLEY. UPPER ENDO 04/04, WATER UNTIL NOON AND THEN NPO.
[2024-04-04] MEDS ORDERED: Levothyroxine Sodium 0.075 MG Tab PO SCH (06:00)
[2024-04-04] MEDS ORDERED: Sertraline HCl 100 MG Tab PO SCH (09:00)
[2024-04-04 10:30] LABS: Hematocrit 25.9 % (33.0-51.0); Hemoglobin 8.7 g/dL (11.5-16.0)
--- NOTE | 2024-04-04 11:53 | NUR ---
MED DR DIALLO IN [facility]. UPDATED THAT PT NEEDS MEDS. ARE RECONCILED
[2024-04-04] MEDS ORDERED: NS 500 ML IV SCH (12:05)
[2024-04-04] MEDS ORDERED: propofoL 40 ML IV ONE (13:46)
[2024-04-04] MEDS ORDERED: Ipratropium/Albuterol SulF 2.5-0.5MG/3 ML Amp INH SCH (13:55)
--- NOTE | 2024-04-04 14:03 | NUR ---
History, Chart, Medications and Allergies reviewed before start of procedure. Patient confirms NPO status and agrees with scheduled surgery. Patient communicating slow, but able to communicate with nurse with some aphasia noted. Dr. Day notified of lung assessment. Duoneb ordered and started. REPORT GIVEN TO BOED MACIAS RN.
--- NOTE | 2024-04-04 14:48 | NUR ---
04/04/24 1448 Jairon Tenorio CONFIRMED AND REVIEWED H&P, MEDCICATIONS, ALLERGIES, MEDICAL HISTORY, RESPIRATORY HISTORY, VITAL SIGNS, 3-LEAD EKG, CONSENTS, AND PHYSICIAN ORDERS. PATIENT CONFIRMS NPO STATUS AND AGREES WITH SCHEDULED PROCEDURE. MONITOR INTACT WITH CONTINUOUS PULSE OXIMETRY, CAPNOGRAPHY, 3-LEAD EKG, INTERMITTENT BP. SUPPLEMENTAL O2 TO BE TITRATED THROUGHOUT PROCEDURE TO MAINTAIN O2 SATURATION ABOVE 90%. PATIENT DETERMINED TO BE ASA APPROPRIATE FOR PROPOFOL SEDATION PRIOR TO START OF PROCEDURE BY DR. KHALIL.
[2024-04-04 16:27] LABS: Hematocrit 25.8 % (33.0-51.0); Hemoglobin 8.7 g/dL (11.5-16.0)
--- NOTE | 2024-04-04 17:30 | NUR ---
PT PLEASTNT COOP A/O. DYSPHAGIA CONTINUES. DR KHALIL DID SCOPE AND FIXED DUODENAL AREA, CLIPS AND COTTERIZING. DINNER ORDERED BY DR KHALIL. PT AWAKE, AMBULATED TO BATHROOM SBA. VSS. MENTIONED TO DRAMATIC ARTS HISTORIAN THAT SHE MIGHT BE REALEASED TO GO HOME . NO OTHER CONCERNS NOTED. BED IN LOW POSITIOIN, CALL LITE IN REACH, CALLS APPROP
[2024-04-04 22:12] LABS: Hematocrit 24.5 % (33.0-51.0); Hemoglobin 8.2 g/dL (11.5-16.0)
[2024-04-05 02:40] VITALS: BP 158/55
--- NOTE | 2024-04-05 04:32 | NUR ---
SHIFT SUMMARY PATIENT HAD NO ACUTE CHANGES. AXOX 4 AND SBA TO BR. POWERGLIDE DANAE ARM INTACT. TELE MONITOR NSR 64 W/BBB. DENIES CHEST PAIN, SOB, AND N/V. VSS/AFEBRILE. LAB DRAW HgB 8.2 AND LAST HgB 8.7. TROPONIN 112 DOWN FROM 147. COOPERATIVE WITH CARE. CALL LIGHT IN REACH. BED IN LOWEST POSITION. WILL CONTINUE TO MONITOR UNTIL DAY SHIFT NURSE ASSUMES CARE.
[2024-04-05 05:33] LABS: BASOPHILS ABSOLUTE AUTO 0.04 K/mm3 (0.00-0.23); BASOPHILS PERCENT AUTO 1 % (0-2); EOSINOPHILS ABSOLUTE AUTO 0.14 K/mm3 (0.00-0.68); EOSINOPHILS PERCENT AUTO 2 % (0-6); Hematocrit 27.1 % (33.0-51.0); Hemoglobin 8.9 g/dL (11.5-16.0); IMMATURE GRAN ABSOLUTE AUTO 0.02 K/mm3 (0.00-0.10); IMMATURE GRAN PERCENT AUTO 0 % (0-1); LYMPHOCYTES ABSOLUTE AUTO 1.43 K/mm3 (0.84-5.20); LYMPHOCYTES PERCENT AUTO 16 % (21-46); MONOCYTES ABSOLUTE AUTO 0.99 K/mm3 (0.16-1.47); MONOCYTES PERCENT AUTO 11 % (4-13); Mean Corpuscular HGB 31.3 pg (26.0-34.0); Mean Corpuscular HGB Conc 32.8 g/dL (31.5-36.5); Mean Corpuscular Volume 95 fL (80-100); Mean Platelet Volume 10.5 fL (9.1-12.4); NEUTROPHILS ABSOLUTE AUTO 6.23 K/mm3 (1.96-9.15); NEUTROPHILS PERCENT AUTO 70 % (41-73); Platelet Count 173 K/mm3 (150-400); RDW Coefficient Variation 19.7 % (11.7-14.2); RDW Standard Deviation 68.3 fL (35.1-46.3); Red Blood Cell Count 2.84 M/mm3 (3.80-5.20); White Blood Cell Count 8.85 K/mm3 (4.00-11.30)
[2024-04-05 05:49] LABS: Calcium, Blood 8.4 mg/dL (8.5-10.1); Creatinine, Blood 0.96 mg/dL (0.40-1.00); Potassium, Blood 4.3 mmol/L (3.5-5.5)
[2024-04-05] MEDS ORDERED: Pantoprazole Sodium 40 MG Tab PO SCH (06:00)
[2024-04-05 07:51] VITALS: BP 156/55
[2024-04-05 09:30] VITALS: BP 155/53
[2024-04-05] MEDS ORDERED: Acetaminophen 500 MG Tab PO PRN (09:40)
[2024-04-05 11:47] VITALS: BP 152/49
[2024-04-05] MEDS ORDERED: NS 1,000 ML IV SCH (12:00)
[2024-04-05] MEDS ORDERED: Ondansetron HCl 2 MG / ML 2ML Vial IV PRN (12:00)
[2024-04-05 12:13] LABS: BASOPHILS ABSOLUTE AUTO 0.02 K/mm3 (0.00-0.23); BASOPHILS PERCENT AUTO 0 % (0-2); EOSINOPHILS PERCENT AUTO 0 % (0-6); Hematocrit 24.7 % (33.0-51.0); Hemoglobin 8.5 g/dL (11.5-16.0); IMMATURE GRAN ABSOLUTE AUTO 0.06 K/mm3 (0.00-0.10); IMMATURE GRAN PERCENT AUTO 0 % (0-1); LYMPHOCYTES ABSOLUTE AUTO 0.57 K/mm3 (0.84-5.20); LYMPHOCYTES PERCENT AUTO 4 % (21-46); MONOCYTES ABSOLUTE AUTO 1.27 K/mm3 (0.16-1.47); MONOCYTES PERCENT AUTO 9 % (4-13); Mean Corpuscular HGB 32.2 pg (26.0-34.0); Mean Corpuscular HGB Conc 34.4 g/dL (31.5-36.5); Mean Corpuscular Volume 94 fL (80-100); Mean Platelet Volume 10.5 fL (9.1-12.4); NEUTROPHILS ABSOLUTE AUTO 12.99 K/mm3 (1.96-9.15); NEUTROPHILS PERCENT AUTO 87 % (41-73); Platelet Count 159 K/mm3 (150-400); RDW Coefficient Variation 18.9 % (11.7-14.2); RDW Standard Deviation 64.4 fL (35.1-46.3); Red Blood Cell Count 2.64 M/mm3 (3.80-5.20); White Blood Cell Count 14.91 K/mm3 (4.00-11.30)
[2024-04-05 12:33] LABS: Albumin, Blood 2.5 g/dL (3.4-5.0); Albumin/Globulin Ratio 0.8 (0.8-1.8); Bun/Creatinine Ratio 22.4 (12.0-20.0); Calcium, Blood 7.8 mg/dL (8.5-10.1); Creatinine, Blood 0.98 mg/dL (0.40-1.00); Globulin, Blood 3.1 g/dL (2.2-4.0); Potassium, Blood 4.1 mmol/L (3.5-5.5); Total Protein, Blood 5.6 g/dL (6.4-8.2)
--- NOTE | 2024-04-05 12:45 | NUR ---
PATIENT FEBRILE WITH NAUSEA AND MALAISE. MD NOTIFIED VIA TELEPHONE, PRN TYLENOL AND ZOFRAN ORDERED AND ADMINISTERED. LABS DRAWN SHOWING ELEVATED WBC, COVID SWAB OBTAINED AND SENT TO LAB. IV FLUIDS RUNNING PER AUG. WILL OBTAIN URINE SPECIMEN AND CONTINUE TO MONITOR.
[2024-04-05 13:10] LABS: Influenza A, PCR NEGATIVE (NEGATIVE); Influenza B, PCR NEGATIVE (NEGATIVE); Resp Syncytial Virus, PCR NEGATIVE (NEGATIVE); SARS-Cov-2 (COVID-19) PCR, MMC NEGATIVE (NEGATIVE)
[2024-04-05 14:01] LABS: Source, Urine Clean Catch
[2024-04-05 14:12] LABS: Appearance, Urine Clear (Clear); Bilirubin, Urine Neg (Neg); Blood, Urine Neg (Neg); Color, Urine Yellow (P-Yellow); Glucose Qualitative, Urine Neg (Neg); Ketones, Urine Neg (Neg); Leukocyte Esterase, Urine Neg (Neg); Nitrite, Urine Neg (Neg); Protein, Urine Neg (Neg); Specific Gravity, Urine 1.015 (1.003-1.022); Urobilinogen, Urine NORM (Normal)
[2024-04-05] MEDS ORDERED: CefTRIAXone Sodium 1,000 MG in NS 100 ML IV SCH (15:50)
[2024-04-05 17:05] VITALS: BP 147/49
--- NOTE | 2024-04-05 17:35 | NUR ---
SHIFT SUMMARY PATIENT A/OX4, EXPRESSIVE APHASIA, BUT ABLE TO MAKE NEEDS KNOWN. PLEASANT AND COOPERATIVE WITH CARE. PLANNED TO DISCHARGE HOME TODAY BUT BECAME FEBRILE AND WBC ELEVATED AT 14.91. PO TYLENOL ADMINISTERED FOR ORAL TEMP OF 103.1 F AT THE HIGHEST THIS AFTERNOON, WHICH LOWERED PATIENT'S TEMP TO 101.0 F. PATIENT ALSO COMPLAINING OF NAUSEA, PRN ZOFRAN GIVEN. EXPIRATORY WHEEZES NOTED THROUGHOUT LUNG SOMERS. OCCASIONAL NONPRODUCTIVE COUGH NOTED. PATIENT ALSO COMPLAINING OF DIZZINESS AND EXPERIENCING RIGORS. IV ABX STARTED AND PATIENT ON CONTINUOUS IV FLUIDS. UA, VIRAL NOSE SWAB OBTAINED AND NEGATIVE. PARTIAL BLOOD CULTURES AND CHEST X RAY OBTAINED, CURRENTLY PENDING RESULTS. MD AWARE OF PATIENT STATUS. FAMILY AT BEDSIDE THIS EVENING AND UPDATED. TELEMETRY IN PLACE, NO EVENTS NOTED. NO OTHER CONCERNS AT THIS TIME.
[2024-04-05 19:46] VITALS: BP 141/45
[2024-04-05] MEDS ORDERED: Azithromycin 500 MG in NS 250 ML IV SCH (21:30)
[2024-04-05] MEDS ORDERED: TraMADol HCl 50 MG Tab PO PRN (21:35)
[2024-04-06 02:43] VITALS: BP 111/48
[2024-04-06 05:54] LABS: BASOPHILS ABSOLUTE AUTO 0.04 K/mm3 (0.00-0.23); BASOPHILS PERCENT AUTO 0 % (0-2); EOSINOPHILS PERCENT AUTO 0 % (0-6); Hematocrit 25.6 % (33.0-51.0); Hemoglobin 8.6 g/dL (11.5-16.0); IMMATURE GRAN PERCENT AUTO 3 % (0-1); LYMPHOCYTES ABSOLUTE AUTO 1.54 K/mm3 (0.84-5.20); LYMPHOCYTES PERCENT AUTO 6 % (21-46); MONOCYTES ABSOLUTE AUTO 2.24 K/mm3 (0.16-1.47); MONOCYTES PERCENT AUTO 8 % (4-13); Mean Corpuscular HGB 31.9 pg (26.0-34.0); Mean Corpuscular HGB Conc 33.6 g/dL (31.5-36.5); Mean Corpuscular Volume 95 fL (80-100); Mean Platelet Volume 10.6 fL (9.1-12.4); NEUTROPHILS ABSOLUTE AUTO 22.27 K/mm3 (1.96-9.15); NEUTROPHILS PERCENT AUTO 83 % (41-73); Platelet Count 140 K/mm3 (150-400); RDW Coefficient Variation 18.3 % (11.7-14.2); RDW Standard Deviation 62.6 fL (35.1-46.3); White Blood Cell Count 26.89 K/mm3 (4.00-11.30)
[2024-04-06 06:15] LABS: Bun/Creatinine Ratio 18.4 (12.0-20.0); Calcium, Blood 7.5 mg/dL (8.5-10.1); Creatinine, Blood 0.98 mg/dL (0.40-1.00); Potassium, Blood 4.4 mmol/L (3.5-5.5)
--- NOTE | 2024-04-06 06:29 | NUR ---
PT ADMITTED 04/03/24 WITH GI BLEED,EGD AND CAUTERIZED BLEED. NO BM THIS SHIFT. FEBRILE 103.1, TYLENOL GIVEN. BLOOD CULTURES PENDING.AAOX4, EXPRESSIVE ASPHAGIA FROM CVA. TELE IN PLACE NS @ 72. SBA WITH WALKER. POWERGLIDE IN LUE. NS @ 125ML/HR. ABX: ANTONIA.
[2024-04-06 08:01] VITALS: BP 125/58
[2024-04-06 14:49] VITALS: BP 121/50
--- NOTE | 2024-04-06 15:00 | NUR ---
PATIENT REQUESTED HOME MEDICATIONS BE RESTARTED, DR. DIALLO NOTIFIED VIA PHONE AND STATES WILL RESUME SOME HOME MEDICATIONS BUT INTENTIONALLY HELD OTHERS. INFORMED PATIENT AND AGREEABLE TO PLAN.
[2024-04-06] MEDS ORDERED: PANTOPRAZOLE SO40 M2 PO (16:14)
--- NOTE | 2024-04-06 18:02 | NUR ---
SHIFT SUMMARY PATIENT A/OX4, ABLE TO MAKE NEEDS KNOWN, DESPITE EXPRESSIVE APHASIA. PLEASANT AND COOPERATIVE WITH CARE. TELEMETRY IN PLACE, ACOSTA STATED YESTERDAY AND TODAY PATIENT HAS CONVERTED FROM SINUS TO JUNCTIONAL RHYTHYM. PATIENT ASYMPTOMATIC. CHEST X RAY FROM YESTERDAY SHOWING R LOWER LOBE PNA. PATIENT WITH DYSPNEA WITH EXERTION. IV ABX INFUSED PER AUG, AND FLUIDS RUNNING PER AUG. ZIOPATCH IN PLACE FROM HOME. PATIENT PARTICIPATED WITH PT/OT TODAY AND RECOMMENDED HOME WITH HOME HEALTH AND SBA. PATIENT STATES FEELING OVERALL BETTER THAN YESTERDAY AND IMPROVING. NO OTHER CONCERNS AT THIS TIME.
[2024-04-06 20:23] VITALS: BP 138/41
[2024-04-06] MEDS ORDERED: Latanoprost 0.005% Opth Soln 2.5 ML BOTHEYES SCH (21:00)
[2024-04-07 03:53] VITALS: BP 139/56
--- NOTE | 2024-04-07 05:25 | NUR ---
ADMITTTED 04/03/24 FOR GI BLEED, RESOLVED RLL PNU. TELL IN PLACE NS. AMBULATES TO BR WITH SBA.LUE POWERGLIDE IN PLACE, 125ML/HR NS. AFEBRILE THROUGH OUT NIGHT.
--- NOTE | 2024-04-07 05:28 | NUR ---
ADMITTED 04/03/24 STEMI. PT IS OREINTED TO SELF, UNABLE TO RE-ORIENT FOR LONG, D/T DEMENTIA.ASSIST 1-2 WITH WALKER. KITCHEN CATH INPLACE, DRAING WITHOUT COMPLICATIONS. URINE CULTURE IS PENDING LAST BM 06/02/24 REC'D BOWEL INTERVENTION DAY SHIFT 04/06/24.#20 R HAND. DC PLAN [facility].
[2024-04-07 06:17] LABS: BASOPHILS ABSOLUTE AUTO 0.05 K/mm3 (0.00-0.23); BASOPHILS PERCENT AUTO 0 % (0-2); EOSINOPHILS PERCENT AUTO 1 % (0-6); Hematocrit 25.2 % (33.0-51.0); Hemoglobin 8.1 g/dL (11.5-16.0); IMMATURE GRAN ABSOLUTE AUTO 0.62 K/mm3 (0.00-0.10); IMMATURE GRAN PERCENT AUTO 3 % (0-1); LYMPHOCYTES PERCENT AUTO 9 % (21-46); MONOCYTES PERCENT AUTO 9 % (4-13); Mean Corpuscular HGB 30.9 pg (26.0-34.0); Mean Corpuscular HGB Conc 32.1 g/dL (31.5-36.5); Mean Corpuscular Volume 96 fL (80-100); Mean Platelet Volume 10.9 fL (9.1-12.4); NEUTROPHILS ABSOLUTE AUTO 15.88 K/mm3 (1.96-9.15); NEUTROPHILS PERCENT AUTO 78 % (41-73); Platelet Count 153 K/mm3 (150-400); RDW Coefficient Variation 17.6 % (11.7-14.2); RDW Standard Deviation 61.9 fL (35.1-46.3); Red Blood Cell Count 2.62 M/mm3 (3.80-5.20); White Blood Cell Count 20.45 K/mm3 (4.00-11.30)
[2024-04-07 06:37] LABS: Bun/Creatinine Ratio 19.3 (12.0-20.0); Calcium, Blood 7.7 mg/dL (8.5-10.1); Creatinine, Blood 0.88 mg/dL (0.40-1.00); Potassium, Blood 4.2 mmol/L (3.5-5.5)
[2024-04-07 07:50] VITALS: BP 142/55
[2024-04-07] MEDS ORDERED: GuaiFENesin 600 MG TabCR PO SCH (10:00)
[2024-04-07] MEDS ORDERED: Polyethylene Glycol 3350 17 gm PO PRN (10:20)
[2024-04-07] MEDS ORDERED: Docusate Sodium/Senna 1 Tab PO PRN (10:20)
[2024-04-07 15:35] VITALS: BP 130/54
--- NOTE | 2024-04-07 16:42 | NUR ---
PATIENT IS ALERT AND ORIENTED AND COOPERATIVE WITH CARE. APHASIA NOTED. ZIO PATCH IN PLACE. EXPIRATORY WHEEZE. IND TO THE BATHROOM. IV FLUIDS DC'D THIS AFTERNOON D/T PITTING EDEMA IN HANDS AND FEET. PATIENT IS DRINKING WATER INDEPENDENTLY. FAMILY VISITED THIS AFTERNOON. WAITING FOR SPUTUM SAMPLE. BOWEL CARE MEDS STARTED TODAY. PATIENT STATES HER LAST BM WAS 04/02/24. WILL CONTINUE TO MONITOR.
[2024-04-07 20:20] VITALS: BP 145/65
[2024-04-07] MEDS ORDERED: Apixaban 5 MG Tab PO SCH (21:00)
--- NOTE | 2024-04-08 04:38 | NUR ---
PT IS A 74 YO FULL CODE FEMALE. ADMITTED FOR GI BLEED WHICH IS NOW RESOLVED BUT SHE HAS RLL PNEUMONIA. PT IS ON RA AND TAKES MEDS WHOLE WITH WATER. PT IS A ONE ASSIST/IND TO THE BATHROOM. PT CALLS APPROPRIATELY AND MAKES NEEDS KNOWN. PT WEARS A ZIO PATCH HEART MONITOR AND HAS A PG IN GABRIEL.PT IS A&OX4. PT HAS TELE WITH SR IN THE [facility]S AND [facility]. PT IS TO GO HOME ON HOME HEALTH ONCE STABLE. I ALSO GAVE PT HER EYE DROPS WHICH ARE STORED IN THE FRIDGE. PT HAS CALL LIGHT IN REACH
[2024-04-08 05:37] VITALS: BP 144/53
[2024-04-08 06:14] LABS: BASOPHILS ABSOLUTE AUTO 0.03 K/mm3 (0.00-0.23); BASOPHILS PERCENT AUTO 0 % (0-2); EOSINOPHILS ABSOLUTE AUTO 0.27 K/mm3 (0.00-0.68); EOSINOPHILS PERCENT AUTO 3 % (0-6); Hematocrit 23.5 % (33.0-51.0); Hemoglobin 7.7 g/dL (11.5-16.0); IMMATURE GRAN ABSOLUTE AUTO 0.14 K/mm3 (0.00-0.10); IMMATURE GRAN PERCENT AUTO 1 % (0-1); LYMPHOCYTES ABSOLUTE AUTO 1.29 K/mm3 (0.84-5.20); LYMPHOCYTES PERCENT AUTO 12 % (21-46); MONOCYTES PERCENT AUTO 10 % (4-13); Mean Corpuscular HGB 30.9 pg (26.0-34.0); Mean Corpuscular HGB Conc 32.8 g/dL (31.5-36.5); Mean Corpuscular Volume 94 fL (80-100); Mean Platelet Volume 10.5 fL (9.1-12.4); NEUTROPHILS ABSOLUTE AUTO 7.74 K/mm3 (1.96-9.15); NEUTROPHILS PERCENT AUTO 73 % (41-73); Platelet Count 156 K/mm3 (150-400); RDW Coefficient Variation 17.5 % (11.7-14.2); Red Blood Cell Count 2.49 M/mm3 (3.80-5.20); White Blood Cell Count 10.57 K/mm3 (4.00-11.30)
[2024-04-08 06:31] LABS: Bun/Creatinine Ratio 18.7 (12.0-20.0); Calcium, Blood 7.5 mg/dL (8.5-10.1); Creatinine, Blood 0.96 mg/dL (0.40-1.00); Potassium, Blood 4.1 mmol/L (3.5-5.5)
[2024-04-08 07:49] VITALS: BP 161/63
[2024-04-08 15:04] VITALS: BP 149/62
--- NOTE | 2024-04-08 17:00 | NUR ---
SHIFT SUMMARY: NO EVENTS OR CHANGES WITH THE PATIENT THROUGHOUT THE SHIFT. SHE HAS YET TO HAVE A BOWEL MOVEMENT AND IT HAS BEEN 6 DAYS; DR. JOHNSON AWARE. PATIENT GETTING BOWEL MEDS THAT ARE AVAILABLE. SHE HAS BEEN INDEPENDENT TO THE BATHROOM, CALLS APPROPRIATELY, AND NO SIGNS OR SYMPTOMS OF DISTRESS, OR EVENTS OR TELE. SHE IS SITTING AT THE EDGE OF THE BED, CALL LIGHT WITHIN REACH, PLAN OF CARE ONGOING.
[2024-04-08 21:23] VITALS: BP 141/65
[2024-04-09 03:30] VITALS: BP 155/67
[2024-04-09 05:24] LABS: BASOPHILS ABSOLUTE AUTO 0.04 K/mm3 (0.00-0.23); BASOPHILS PERCENT AUTO 1 % (0-2); EOSINOPHILS PERCENT AUTO 4 % (0-6); Hematocrit 26.6 % (33.0-51.0); Hemoglobin 8.6 g/dL (11.5-16.0); IMMATURE GRAN ABSOLUTE AUTO 0.03 K/mm3 (0.00-0.10); IMMATURE GRAN PERCENT AUTO 0 % (0-1); LYMPHOCYTES ABSOLUTE AUTO 1.28 K/mm3 (0.84-5.20); LYMPHOCYTES PERCENT AUTO 16 % (21-46); MONOCYTES ABSOLUTE AUTO 1.44 K/mm3 (0.16-1.47); MONOCYTES PERCENT AUTO 18 % (4-13); Mean Corpuscular HGB 30.7 pg (26.0-34.0); Mean Corpuscular HGB Conc 32.3 g/dL (31.5-36.5); Mean Corpuscular Volume 95 fL (80-100); Mean Platelet Volume 10.2 fL (9.1-12.4); NEUTROPHILS ABSOLUTE AUTO 5.05 K/mm3 (1.96-9.15); NEUTROPHILS PERCENT AUTO 62 % (41-73); Platelet Count 177 K/mm3 (150-400); RDW Coefficient Variation 17.2 % (11.7-14.2); RDW Standard Deviation 59.8 fL (35.1-46.3); White Blood Cell Count 8.14 K/mm3 (4.00-11.30)
[2024-04-09 05:51] LABS: Bun/Creatinine Ratio 16.6 (12.0-20.0); Calcium, Blood 8.4 mg/dL (8.5-10.1); Creatinine, Blood 0.78 mg/dL (0.40-1.00); Potassium, Blood 4.2 mmol/L (3.5-5.5)
--- NOTE | 2024-04-09 06:31 | NUR ---
SHIFT SUMMARY PT HAS RESTED T/O THE NIGHT. HGB IS TRENDING UP WITH AM LABS. PT HAS BEEN INDEPENDENT IN THE ROOM, MAKES NEEDS KNOWN. VITALS ARE STABLE. PLAN OF CARE UNCHANGED. BED IN LOWEST POSITION, CALL LIGHT WITHIN REACH.
[2024-04-09 07:35] VITALS: BP 170/64
--- NOTE | 2024-04-09 08:34 | NUR ---
pt laying in bed with eyes closed, wakes easily, a/ox4, speech is garbled and she gets frustrated trying to get out what she is trying to say, lungs are clear in upper lin, exp wheeze, courseness in bases, resp even and unlabored, no cough noted at this time, on r/a, hrr, tele in place running sr with bbb, no edema noted, ppp +1, cap refill <3 sec, vs stable, afebrile, power glide to gudelia, site is clear and patent, btx4, abd flat soft nontender, voids without diff, has pullups in place, reports no bm for days, couldn't say exactly how long, skin c/w/d, marcello, took po meds with apple sauce, call light in reach.
[2024-04-09 15:34] VITALS: BP 170/77
--- NOTE | 2024-04-09 18:34 | NUR ---
pt up indep in room, doing ok, no needs or complaints, did have a bm today but motor man states unable to tell if black or dark brown, no acute changes this shift. call light in reach.
[2024-04-09 20:48] VITALS: BP 155/81
[2024-04-10 03:20] VITALS: BP 131/54
[2024-04-10 06:12] LABS: BASOPHILS ABSOLUTE AUTO 0.03 K/mm3 (0.00-0.23); BASOPHILS PERCENT AUTO 1 % (0-2); EOSINOPHILS PERCENT AUTO 2 % (0-6); Hematocrit 23.4 % (33.0-51.0); Hemoglobin 7.8 g/dL (11.5-16.0); IMMATURE GRAN ABSOLUTE AUTO 0.03 K/mm3 (0.00-0.10); IMMATURE GRAN PERCENT AUTO 1 % (0-1); LYMPHOCYTES ABSOLUTE AUTO 1.12 K/mm3 (0.84-5.20); LYMPHOCYTES PERCENT AUTO 18 % (21-46); MONOCYTES ABSOLUTE AUTO 1.23 K/mm3 (0.16-1.47); MONOCYTES PERCENT AUTO 19 % (4-13); Mean Corpuscular HGB 30.8 pg (26.0-34.0); Mean Corpuscular HGB Conc 33.3 g/dL (31.5-36.5); Mean Corpuscular Volume 93 fL (80-100); Mean Platelet Volume 10.6 fL (9.1-12.4); NEUTROPHILS ABSOLUTE AUTO 3.83 K/mm3 (1.96-9.15); NEUTROPHILS PERCENT AUTO 60 % (41-73); Platelet Count 155 K/mm3 (150-400); RDW Coefficient Variation 17.2 % (11.7-14.2); RDW Standard Deviation 57.8 fL (35.1-46.3); Red Blood Cell Count 2.53 M/mm3 (3.80-5.20); White Blood Cell Count 6.34 K/mm3 (4.00-11.30)
[2024-04-10 06:30] LABS: Bun/Creatinine Ratio 12.9 (12.0-20.0); Calcium, Blood 7.7 mg/dL (8.5-10.1); Creatinine, Blood 0.86 mg/dL (0.40-1.00); Potassium, Blood 4.4 mmol/L (3.5-5.5)
--- NOTE | 2024-04-10 06:34 | NUR ---
Rn shift summary: Patient is alert and oriented. She is CAHTO. She seems to understand words and instructions but has word salad and garbled speech. She is up independantly to the BR. Pt did have pain to RUQ and tramadol was helpful. Pt did sleep well 2nd half of shift and denies pain this am. Power glide in L upper arm, draws and flushes well. Call light in reach. Able to make needs known.
[2024-04-10 08:02] VITALS: BP 144/64
[2024-04-10] MEDS ORDERED: Albuterol 2.5 MG/3 ML VIAL INH PRN (09:50)
[2024-04-10] MEDS ORDERED: PredniSONE 20 MG Tab PO SCH (10:00)
[2024-04-10 14:15] LABS: Hematocrit 24.5 % (33.0-51.0); Hemoglobin 8.2 g/dL (11.5-16.0)
[2024-04-10] MEDS ORDERED: ALBU90OI INH (16:12)
[2024-04-10] MEDS ORDERED: AMOX875 PO (16:12)
[2024-04-10] MEDS ORDERED: SENN187 PO ×2 (16:13)
[2024-04-10] MEDS ORDERED: GUAI600T33 PO (16:14)
--- NOTE | 2024-04-10 17:25 | NUR ---
DISCHARGE NOTE: PT DISCHARGED HOME ON HH WITH DAUGHTER TO TRANSPORT HOME. PT IS ESCORTED OUT OF BUILDING BY SLEEP LAB TECHNICIAN. ALL QUESTIONS FROM PATIENT AND PATIENT'S FAMILY HAVE BEEN ANSWERED. PT AND DAUGHTER STATE UNDERSANDING. PT POWERGLIDE REMOVED WITHOUT REDNESS, SWELLING, OR PAIN. PT MEDS RETURNED TO PATIENT AND BELONGS WENT WITH PATIENT. PT SPEECH CONTINUES TO BE GARGLED BUT SHE IS ABLE TO EXPRESS HER NEEDS. PT TO FOLLOW UP OUTPATIENT WITH [facility].
== END 2024-04-10 17:25 | disposition home health service (06) | DRG 377 ==
LOC: ER 11:49 → MEDS 16:47 → ENPENDDIS 04-10 15:00 → MEDS 04-10 17:25
PROVIDERS: Emergency Medicine; Internal Medicine Gastroenterology; Student in an Organized Health Care Education/Training Program; ADMIT Internal Medicine
PROC: 30233N1 Transfusion of Nonautologous Red Blood Cells into Peripheral Vein, Percutaneous Approach (ICD-10-PCS; 2024-04-03)
PROC: 0W3P8ZZ Control Bleeding in Gastrointestinal Tract, Via Natural or Artificial Opening Endoscopic (ICD-10-PCS; principal; 2024-04-04 14:30)
DX: K31.811 Angiodysplasia of stomach and duodenum with bleeding (principal); A41.9 Sepsis, unspecified organism; J18.9 Pneumonia, unspecified organism; D62 Acute posthemorrhagic anemia; N17.9 Acute kidney failure, unspecified; E78.00 Pure hypercholesterolemia, unspecified; E03.9 Hypothyroidism, unspecified; K74.60 Unspecified cirrhosis of liver; I48.0 Paroxysmal atrial fibrillation; F17.210 Nicotine dependence, cigarettes, uncomplicated; I10 Essential (primary) hypertension; F32.A Depression, unspecified; B19.20 Unspecified viral hepatitis C without hepatic coma; K21.9 Gastro-esophageal reflux disease without esophagitis; R79.89 Other specified abnormal findings of blood chemistry; Z91.048 Other nonmedicinal substance allergy status; Z91.040 Latex allergy status; Z88.4 Allergy status to anesthetic agent; Z79.01 Long term (current) use of anticoagulants; Z79.890 Hormone replacement therapy; Z79.899 Other long term (current) drug therapy; I69.320 Aphasia following cerebral infarction; Z87.19 Personal history of other diseases of the digestive system
CPT/HCPCS: 0241U; 36415; 36430; 71046; 80048; 80053; 81001; 81003; 83605; 84145; 84439; 84484; 85014; 85018; 85025; 86850; 86900; 86901; 86923; 87040; 87070; 87205; 87449; 93005; 93010; 94640; 94664; 94760; 96360; 97110; 97116; 97162; 97530; 99285-25; A9270; J0456; J0696; J2405; J2470; J2704; J7030; J7040; J7050; J7512; P9016

== ENCOUNTER 2024-05-18 08:25 | Day surgery (SDC) | payer MEDICARE, OTHER ==
[~2024-05-18] VITALS: Ht 167.6 cm; Wt 64.8 kg
[~2024-05-18 08:25] MED LIST changes: +ALBU90OI INH; +AMOX875 PO; +ATOR80 PO; +GUAI600T33 PO; +PANTOPRAZOLE SO40 M2 PO; +SENN187 PO
[2024-05-18] MEDS ORDERED: SERT100 (09:15)
[2024-05-18] MEDS ORDERED: FLUT1DIS2 (09:16)
[2024-05-18] MEDS ORDERED: HYDCHL12.5 (09:16)
[2024-05-18] MEDS ORDERED: NITR.4SL (09:17)
[2024-05-18] MEDS ORDERED: LOSARTAN POTAS100 MG (09:17)
[2024-05-18] MEDS ORDERED: NORT25 (09:18)
[2024-05-18] MEDS ORDERED: propofoL 50 ML IV ONE (10:03)
[2024-05-18] MEDS ORDERED: Lactated Ringer's 1,000 ML IV ONE ×3 (10:03→10:35)
[2024-05-18] MEDS ORDERED: Ondansetron HCl 2 MG / ML 2ML Vial ONE (10:49)
[2024-05-18 11:39] VITALS: BP 143/54
== END 2024-05-18 11:49 | disposition home or self-care (01) ==
LOC: ORSCSDS 08:25
PROVIDERS: Specialist
PROC: 0DJD8ZZ Inspection of Lower Intestinal Tract, Via Natural or Artificial Opening Endoscopic (ICD-10-PCS; principal; 2024-05-18 09:45)
DX: K92.1 Melena (principal); D50.9 Iron deficiency anemia, unspecified; K74.60 Unspecified cirrhosis of liver; K64.8 Other hemorrhoids; K57.30 Diverticulosis of large intestine without perforation or abscess without bleeding; Z86.73 Personal history of transient ischemic attack (TIA), and cerebral infarction without residual deficits; I48.91 Unspecified atrial fibrillation; E03.9 Hypothyroidism, unspecified; I10 Essential (primary) hypertension; E78.5 Hyperlipidemia, unspecified; B19.20 Unspecified viral hepatitis C without hepatic coma; Z79.01 Long term (current) use of anticoagulants; Z79.899 Other long term (current) drug therapy
CPT/HCPCS: J2405; J2704; J7120

== ENCOUNTER 2024-12-07 12:59 | Inpatient (IN) | payer MEDICARE, OTHER ==
[~2024-12-07] VITALS: Ht 167.6 cm; Wt 75.2 kg
[~2024-12-07 12:59] MED LIST changes: +FLUT1DIS2; +HYDCHL12.5; -LATA.005SO BOTHEYES; +LOSARTAN POTAS100 MG; +NITR.4SL; +NORT25; +SERT100
[2024-12-07] MEDS ORDERED: NS 1,000 ML IV SCH (15:05)
[2024-12-07] MEDS ORDERED: Pantoprazole Sodium 40 MG Injection IV ONE (15:05)
[2024-12-07] MEDS ORDERED: Octreotide Acetate 500 MCG in NS 250 ML IV SCH (15:10)
[2024-12-07] MEDS ORDERED: Pantoprazole Sodium 40 MG in NS 50 ML IV SCH (15:10)
[2024-12-07] MEDS ORDERED: Octreotide Acetate 50 MCG in NS 50 ML IV ONE (15:10)
[2024-12-07 16:55] LABS: BASOPHILS ABSOLUTE AUTO 0.04 K/mm3 (0.00-0.23); BASOPHILS PERCENT AUTO 1 % (0-2); EOSINOPHILS ABSOLUTE AUTO 0.01 K/mm3 (0.00-0.68); EOSINOPHILS PERCENT AUTO 0 % (0-6); Hematocrit 28.7 % (33.0-51.0); Hemoglobin 9.6 g/dL (11.5-16.0); IMMATURE GRAN ABSOLUTE AUTO 0.02 K/mm3 (0.00-0.10); IMMATURE GRAN PERCENT AUTO 0 % (0-1); LYMPHOCYTES ABSOLUTE AUTO 2.44 K/mm3 (0.84-5.20); LYMPHOCYTES PERCENT AUTO 29 % (21-46); MONOCYTES ABSOLUTE AUTO 0.72 K/mm3 (0.16-1.47); MONOCYTES PERCENT AUTO 9 % (4-13); Mean Corpuscular HGB 30.5 pg (26.0-34.0); Mean Corpuscular HGB Conc 33.4 g/dL (31.5-36.5); Mean Corpuscular Volume 91 fL (80-100); Mean Platelet Volume 11.7 fL (9.1-12.4); NEUTROPHILS ABSOLUTE AUTO 5.18 K/mm3 (1.96-9.15); NEUTROPHILS PERCENT AUTO 62 % (41-73); Platelet Count 154 K/mm3 (150-400); RDW Coefficient Variation 15.4 % (11.7-14.2); RDW Standard Deviation 50.9 fL (35.1-46.3); Red Blood Cell Count 3.15 M/mm3 (3.80-5.20); White Blood Cell Count 8.41 K/mm3 (4.00-11.30)
[2024-12-07 17:18] LABS: Albumin, Blood 3.3 g/dL (3.4-5.0); Albumin/Globulin Ratio 0.8 (0.8-1.8); Bilirubin, Total 0.9 mg/dL (0.1-1.0); Bun/Creatinine Ratio 27.3 (12.0-20.0); Calcium, Blood 9.3 mg/dL (8.5-10.1); Creatinine, Blood 2.09 mg/dL (0.40-1.00); Globulin, Blood 3.9 g/dL (2.2-4.0); Potassium, Blood 4.9 mmol/L (3.5-5.5); Total Protein, Blood 7.2 g/dL (6.4-8.2)
[2024-12-07] MEDS ORDERED: FUROSEMIDE20 MG PO (17:19)
[2024-12-07] MEDS ORDERED: SPIRONOLACTONE50 MG PO (17:19)
[2024-12-07] MEDS ORDERED: DOXEPIN HCL6 MG PO (17:21)
[2024-12-07] MEDS ORDERED: Lactated Ringer's 1,000 ML IV SCH (20:00)
[2024-12-07] MEDS ORDERED: Ondansetron HCl 2 MG / ML 2ML Vial IV PRN (20:00)
[2024-12-07] MEDS ORDERED: Albuterol HFA200 ACT/6.7 GM INH INH PRN (20:15)
[2024-12-07 22:31] LABS: Hematocrit 26.8 % (33.0-51.0); Hemoglobin 8.8 g/dL (11.5-16.0)
[2024-12-07 22:38] VITALS: BP 139/48
[2024-12-08] MEDS ORDERED: NS 250 ML IV PRN (00:45)
[2024-12-08 04:21] VITALS: BP 120/37
[2024-12-08 04:52] LABS: BASOPHILS ABSOLUTE AUTO 0.04 K/mm3 (0.00-0.23); BASOPHILS PERCENT AUTO 1 % (0-2); EOSINOPHILS PERCENT AUTO 1 % (0-6); Hematocrit 22.5 % (33.0-51.0); Hemoglobin 7.5 g/dL (11.5-16.0); IMMATURE GRAN ABSOLUTE AUTO 0.02 K/mm3 (0.00-0.10); IMMATURE GRAN PERCENT AUTO 0 % (0-1); LYMPHOCYTES ABSOLUTE AUTO 2.72 K/mm3 (0.84-5.20); LYMPHOCYTES PERCENT AUTO 38 % (21-46); MONOCYTES ABSOLUTE AUTO 0.79 K/mm3 (0.16-1.47); MONOCYTES PERCENT AUTO 11 % (4-13); Mean Corpuscular HGB 30.1 pg (26.0-34.0); Mean Corpuscular HGB Conc 33.3 g/dL (31.5-36.5); Mean Corpuscular Volume 90 fL (80-100); Mean Platelet Volume 11.7 fL (9.1-12.4); NEUTROPHILS ABSOLUTE AUTO 3.54 K/mm3 (1.96-9.15); NEUTROPHILS PERCENT AUTO 49 % (41-73); Platelet Count 109 K/mm3 (150-400); RDW Coefficient Variation 15.4 % (11.7-14.2); RDW Standard Deviation 50.4 fL (35.1-46.3); Red Blood Cell Count 2.49 M/mm3 (3.80-5.20); White Blood Cell Count 7.21 K/mm3 (4.00-11.30)
[2024-12-08 05:15] LABS: Albumin, Blood 2.8 g/dL (3.4-5.0); Albumin/Globulin Ratio 0.9 (0.8-1.8); Bilirubin, Total 0.7 mg/dL (0.1-1.0); Bun/Creatinine Ratio 25.7 (12.0-20.0); Calcium, Blood 8.1 mg/dL (8.5-10.1); Creatinine, Blood 2.02 mg/dL (0.40-1.00); Globulin, Blood 3.2 g/dL (2.2-4.0); Potassium, Blood 4.4 mmol/L (3.5-5.5)
[2024-12-08] MEDS ORDERED: Levothyroxine Sodium 0.075 MG Tab PO SCH (06:00)
[2024-12-08 07:35] VITALS: BP 108/53
--- NOTE | 2024-12-08 08:08 | NUR ---
PROVIDER IN ROOM NOTE: DR. HINES IS WORKING c DR. MONTEZ (GI) TODAY, IN ROOM AT THIS TIME FOR CONSULT AND TALK c PATIENT REGARDING PLAN OF CARE FOR POSSIBLE UPPER ENDOSCOPY SOMETIMES LATER TODAY.
[2024-12-08 10:36] LABS: Hematocrit 22.1 % (33.0-51.0); Hemoglobin 7.3 g/dL (11.5-16.0)
[2024-12-08 13:58] LABS: Hematocrit 24.7 % (33.0-51.0); Hemoglobin 8.2 g/dL (11.5-16.0)
--- NOTE | 2024-12-08 14:39 | NUR ---
OUT OF ROOM NOTE: PATIENT LEFT THE ROOM AT 1438 VIA WHEELCHAIR BY ALLEN VILLAGOMEZ TO DAY SURGERY FOR UPPER ENDOSCOPY PROCEDURE.
[2024-12-08 14:49] VITALS: BP 126/48
[2024-12-08] MEDS ORDERED: Lactated Ringer's 1,000 ML IV SCH (14:55)
[2024-12-08 15:07] LABS: Percent Saturation 15.3 % (15.0-50.0)
[2024-12-08] MEDS ORDERED: propofoL 20 ML IV ONE ×2 (15:19→15:20)
--- NOTE | 2024-12-08 15:31 | NUR ---
12/08/24 1531 Tanner Tenorio History, Chart, Medications and Allergies reviewed before start of procedure. MONITOR INTACT WITH CONTINUOUS PULSE OXIMETRY, CONTINUOUS END TITAL CO2, 3-LEAD EKG AND INTERMITTENT BLOOD PRESSURE. O2 VIA POM INTACT THROUGHOUT SEDATION/PROCEDURE. Bite Block Placed.
[2024-12-08 16:00] VITALS: BP 120/51
[2024-12-08 16:58] VITALS: BP 131/58
--- NOTE | 2024-12-08 17:40 | NUR ---
SHIFT SUMMARY: PATIENT HAD HER UPPER ENDOSCOPY DONE TODAY, BY DR. MONTEZ. POST-OP VITALS TAKEN. PATIENT CURRENTLY ON FL DIET, TOLERATING WELL. PATIENT DENIES CP/PRESSURE, SOB, N/V AND DIZZINESS. PATIENT H/H HAS IMPROVED. PATIENT ALERT AND ORIENTED c EXPRESSIVE APHASIA FROM PREVIOUS CVA. PATIENT CONTINENT OF BLADDER, USES BSC c SBA. PATIENT HAS HAD NO BM THIS SHIFT. PATIENT HAS POWERGLIDE TO SANDRO INFUSING PROTONIX AT 10 MLS/HR. SCD'S IN PLACED TO BLE'S. BED ALARM ON FOR SAFETY. CALL LIGHT IN REACH.
[2024-12-08] MEDS ORDERED: LATA.005SO BOTHEYES (18:33)
[2024-12-08] MEDS ORDERED: SOFOSBUVIR-VEL1 EAC1 PO (18:34)
[2024-12-08 18:44] LABS: Hematocrit 25.6 % (33.0-51.0); Hemoglobin 8.3 g/dL (11.5-16.0)
[2024-12-08 19:31] VITALS: BP 126/46
[2024-12-09] VITALS (7 sets, daily range): BP systolic 110–122; BP diastolic 38–56
--- NOTE | 2024-12-09 02:01 | NUR ---
NOTIFIED HOSPITALIST THAT PT HGB 7.0 AND PT ASYMPTOMATIC. NO TRANSFUSION AT THIS TIME AND AWAITING AM LABS FOR INTERVENTIONS.
--- NOTE | 2024-12-09 02:20 | NUR ---
NOTIFIED HOSPITALIST THAT PT AM BP 119/38, PT ASYMPTOMATIC WHEN ASSESSED. ORDER GIVEN TO RECHECK VSS AGAIN IN 1-2 HOURS.
[2024-12-09 04:21] LABS: BASOPHILS ABSOLUTE AUTO 0.02 K/mm3 (0.00-0.23); BASOPHILS PERCENT AUTO 0 % (0-2); EOSINOPHILS ABSOLUTE AUTO 0.19 K/mm3 (0.00-0.68); EOSINOPHILS PERCENT AUTO 3 % (0-6); Hematocrit 21.4 % (33.0-51.0); IMMATURE GRAN ABSOLUTE AUTO 0.01 K/mm3 (0.00-0.10); IMMATURE GRAN PERCENT AUTO 0 % (0-1); LYMPHOCYTES ABSOLUTE AUTO 2.13 K/mm3 (0.84-5.20); LYMPHOCYTES PERCENT AUTO 38 % (21-46); MONOCYTES ABSOLUTE AUTO 0.72 K/mm3 (0.16-1.47); MONOCYTES PERCENT AUTO 13 % (4-13); Mean Corpuscular HGB 30.2 pg (26.0-34.0); Mean Corpuscular HGB Conc 32.7 g/dL (31.5-36.5); Mean Corpuscular Volume 92 fL (80-100); Mean Platelet Volume 11.6 fL (9.1-12.4); NEUTROPHILS PERCENT AUTO 45 % (41-73); Platelet Count 98 K/mm3 (150-400); RDW Coefficient Variation 15.2 % (11.7-14.2); RDW Standard Deviation 50.4 fL (35.1-46.3); Red Blood Cell Count 2.32 M/mm3 (3.80-5.20); White Blood Cell Count 5.57 K/mm3 (4.00-11.30)
[2024-12-09 04:49] LABS: Bun/Creatinine Ratio 25.3 (12.0-20.0); Creatinine, Blood 1.46 mg/dL (0.40-1.00); Potassium, Blood 4.1 mmol/L (3.5-5.5)
[2024-12-09] MEDS ORDERED: NS 500 ML IV SCH (04:50)
[2024-12-09] MEDS ORDERED: Omeprazole 20 MG CapCR PO SCH (06:00)
--- NOTE | 2024-12-09 06:05 | NUR ---
HGB 7.0 ON REDRAW AND BP 122/40. HOSPITALIST NOTIFIED AND 1 UNIT OF PRBC ORDERED FOR TRANSFUSION.
--- NOTE | 2024-12-09 06:05 | NUR ---
SHIFT SUYMMARY NOC. PT A/O X 3-4. HAS EXPRESSIVE APHASIA AND SPEECH IN MUMBLED AT TIMES. BP SOFT 119/38 AND 122/40. PT HAD UPPER ENDOSCOPY PERFORMED YESTERDAY WITH CAUDERIZATION AND A CLIP PLACED TO CONTROL BLEEDING. PT HGB THIS AM 7.0 X 2. HOSPITALIST NOTIFIED AND 1 UNIT PRBC ORDERED FOR TRANSFUSION. PT CURRENTLY RESTING WITH BED IN LOWEST POSITION, AND CALL LIGHT WITHIN REACH.
[2024-12-09 12:18] LABS: Hematocrit 26.8 % (33.0-51.0); Hemoglobin 8.7 g/dL (11.5-16.0)
--- NOTE | 2024-12-09 15:30 | NUR ---
SHIFT/DISCHARGE SUMMARY: PATIENT RECEIVED 1 UNIT PRBC THIS SHIFT. REPEAT H/H AT NOON HAS IMPROVED. PATIENT HAD REGULAR DIET AT NOON, TOLERATED WELL. PATIENT DENIES CP/PRESSURE, SOB, N/V AND DIZZINESS. PATIENT HAS HAD NO BM THIS SHIFT. PATIENT SHOWERED c MINIMAL INVESTMENT ANALYST FROM HER NIECE. PATIENT A/O c EXPRESSIVE APHASIA FROM PREVIOUS CVA. PATIENT HAS HAD NO NEW CHANGES THIS SHIFT. POWERGLIDE DC'D. PATIENT DISCHARGE HOME. DISCHARGE INSTRUCTIONS PACKET GIVEN TO PATIENT. PATIENT EDUCATED ON ADMITTING DX'S OF UPPER GI BLEED, S/S, TX AND TO F/U c PCP AND GI DOCTOR. PATIENT AND NIECE VERBALIZED UNDERSTANDING AND NO FURTHER QUESTIONS. PATIENT HAS HAD NO NEW MEDICATION AND TO RESUME HOME MEDS PER ORDER. ALL PERSONAL BELONGINGS WERE SENT HOME c THE PATIENT. PATIENT LEFT THE ROOM AT 1431, TRANSPORTED VIA BY ALLEN ALMODOVAR TO PATIENT ENTRANCE.
== END 2024-12-09 16:33 | disposition home or self-care (01) | DRG 378 ==
LOC: ER 12:59 → MEDS 13:00
PROVIDERS: Emergency Medicine; Family Medicine; Student in an Organized Health Care Education/Training Program; Surgery; ADMIT Internal Medicine
PROC: 0W3P8ZZ Control Bleeding in Gastrointestinal Tract, Via Natural or Artificial Opening Endoscopic (ICD-10-PCS; principal; 2024-12-08 15:00)
DX: K31.811 Angiodysplasia of stomach and duodenum with bleeding (principal); D62 Acute posthemorrhagic anemia; N17.9 Acute kidney failure, unspecified; E78.00 Pure hypercholesterolemia, unspecified; E03.9 Hypothyroidism, unspecified; K74.60 Unspecified cirrhosis of liver; I48.0 Paroxysmal atrial fibrillation; I10 Essential (primary) hypertension; I45.10 Unspecified right bundle-branch block; D50.9 Iron deficiency anemia, unspecified; R00.1 Bradycardia, unspecified; D69.6 Thrombocytopenia, unspecified; Z87.891 Personal history of nicotine dependence; Z91.048 Other nonmedicinal substance allergy status; Z91.040 Latex allergy status; Z88.8 Allergy status to other drugs, medicaments and biological substances; Z79.890 Hormone replacement therapy; Z79.899 Other long term (current) drug therapy; Z79.51 Long term (current) use of inhaled steroids; Z79.01 Long term (current) use of anticoagulants; I69.820 Aphasia following other cerebrovascular disease; Z87.19 Personal history of other diseases of the digestive system
CPT/HCPCS: 36415; 36430; 80048; 80053; 82272; 82607; 82728; 82746; 83540; 83550; 85014; 85018; 85025; 86850; 86900; 86901; 86923; 93005; 93010; 94760; 96361; 96365; 96366; 96375; 96376; 99285-25; A9270; G0378; J2354; J2470; J2704; J7030; J7050; J7120; P9016

== ENCOUNTER → 2024-12-19 | Outpatient (CLI) | payer MEDICARE, OTHER ==
[~2024-12-19] MED LIST changes: +DOXEPIN HCL6 MG PO; +FUROSEMIDE20 MG PO; +LATA.005SO BOTHEYES; +SOFOSBUVIR-VEL1 EAC1 PO; +SPIRONOLACTONE50 MG PO
[2024-12-19 16:27] LABS: BASOPHILS ABSOLUTE AUTO 0.04 K/mm3 (0.00-0.23); BASOPHILS PERCENT AUTO 1 % (0-2); EOSINOPHILS ABSOLUTE AUTO 0.12 K/mm3 (0.00-0.68); EOSINOPHILS PERCENT AUTO 2 % (0-6); Hematocrit 29.8 % (33.0-51.0); Hemoglobin 9.7 g/dL (11.5-16.0); IMMATURE GRAN ABSOLUTE AUTO 0.02 K/mm3 (0.00-0.10); IMMATURE GRAN PERCENT AUTO 0 % (0-1); LYMPHOCYTES ABSOLUTE AUTO 1.49 K/mm3 (0.84-5.20); LYMPHOCYTES PERCENT AUTO 28 % (21-46); MONOCYTES ABSOLUTE AUTO 0.57 K/mm3 (0.16-1.47); MONOCYTES PERCENT AUTO 11 % (4-13); Mean Corpuscular HGB Conc 32.6 g/dL (31.5-36.5); Mean Corpuscular Volume 92 fL (80-100); NEUTROPHILS ABSOLUTE AUTO 3.03 K/mm3 (1.96-9.15); NEUTROPHILS PERCENT AUTO 57 % (41-73); NRBC ABSOLUTE 0.00 K/mm3 (0.00-0.02); NRBC Auto 0.0 /100 WBC (0.0-0.2); Platelet Count 149 K/mm3 (150-400); RDW Coefficient Variation 15.9 % (11.7-14.2); RDW Standard Deviation 53.3 fL (35.1-46.3)
[2024-12-19 16:31] LABS: Anion Gap 11.0 mmol/L (6-16); Blood Urea Nitrogen 10.0 mg/dL (8-24); CO2, Blood 27.0 mmol/L (21-32); Calcium, Blood 8.7 mg/dL (8.5-10.1); Chloride, Blood 110.0 mmol/L (98-108); Creatinine, Blood 1.07 mg/dL (0.40-1.00); Glucose, Blood 114.0 mg/dL (70-99); Potassium, Blood 4.0 mmol/L (3.5-5.5); Sodium, Blood 144.0 mmol/L (136-145)
== END ==
LOC: LAB 16:23 → LAB SHORT 16:23
PROVIDERS: Physician Assistant
DX: N17.9 Acute kidney failure, unspecified (principal); D64.9 Anemia, unspecified
CPT/HCPCS: 80048; 83880; 85025